=== PATIENT | female | born 1965 | race Caucasian/White ===

== ENCOUNTER 2016-09-24 18:50 | Emergency (ER) | payer OTHER ==
[2016-09-24 19:11] VITALS: BP 122/68; PULSE 96; RESP 18; TEMP 99.2
[2016-09-24] MEDS ORDERED: ACETAMINOPHEN TAB 325 MG TAB PO STA (19:50)
--- NOTE | 2016-09-24 20:23 | XR ---
EXAMINATION TYPE: XR ankle complete RT DATE OF EXAM: 09/24/2016 COMPARISON: NONE HISTORY: Pain TECHNIQUE: 3 views FINDINGS: There is soft tissue swelling over the lateral malleolus. Ankle mortise is anatomic. I see no fracture. IMPRESSION: Soft tissue swelling. No fracture.
--- NOTE | 2016-09-24 20:29 | ED ---
Lower Extremity Injury HPI - General Chief Complaint: Extremity Injury, Lower Stated Complaint: rt ankle injury Time Seen by Provider: 09/24/16 19:43 Source: patient Mode of arrival: ambulatory Limitations: no limitations - History of Present Illness Initial Comments: Patient is a 50-year-old female presenting to the emergency department with chief complaint of right ankle pain. She states she was walking on grass when she stepped into a hole and twisted her ankle. Onset of injury approximately one hour prior to arrival. Patient states she's had a previous sprained ankle to her right foot. Patient was able to ambulate at scene of injury. Patient currently rates pain 7 out of 10, described as sharp, exacerbated with movement, relieved with rest. Patient denies recent fevers, chills, nausea, vomiting, shortness of breath, chest pain, abdominal pain, numbness or tingling. - Related Data Previous Rx's Medication Instructions Recorded Acetaminophen-Codeine 300-30mg 1 tab PO Q6H PRN #12 tablet 09/24/16 [Tylenol #3] Allergies Allergy/AdvReac Type Severity Reaction Status Date / Time aspirin Allergy Dyspnea Verified 09/24/16 19:10 Review of Systems ROS Statement: Those systems with pertinent positive or pertinent negative responses have been documented in the HPI. ROS Other: All systems not noted in ROS Statement are negative. Past Medical History Past Medical History: COPD History of Any Multi-Drug Resistant Organisms: None Reported Past Surgical History: Appendectomy Past Psychological History: Bipolar Smoking Status: Never smoker Past Alcohol Use History: None Reported Past Drug Use History: None Reported General Exam Limitations: no limitations General appearance: alert, anxious Head exam: Present: atraumatic, normocephalic, normal inspection Eye exam: Present: normal appearance Neck exam: Present: normal inspection Respiratory exam: Present: normal lung sounds bilaterally. Absent: respiratory distress, wheezes, rales, rhonchi Cardiovascular Exam: Present: regular rate, normal rhythm, normal heart sounds. Absent: systolic murmur GI/Abdominal exam: Present: soft, normal bowel sounds. Absent: distended Right Knee exam: Present: normal inspection, full ROM. Absent: tenderness, swelling Lower Leg exam: Present: normal inspection, full ROM. Absent: tenderness, swelling Ankle exam: Present: tenderness (Tenderness and swelling to right lateral malleolus), swelling. Absent: full ROM (Secondary to pain), ecchymosis, deformity Foot/Toe exam: Present: normal inspection, full ROM. Absent: tenderness, swelling Course Vital Signs 09/24/16 19:06 Temperature 99.2 F Pulse Rate 96 Respiratory 18 Rate Blood Pressure 122/68 O2 Sat by Pulse 99 Oximetry Medical Decision Making - Medical Decision Making Right ankle sprain. Jenaro wrap applied. Patient instructed to continue compression, elevation, pain medication, and ice. Patient instructed to follow- up with primary care physician as directed. Patient instructed to follow-up with orthopedic service if pain persist in 7-10 days. Patient agrees with treatment plan. Return parameters and discharge instructions reviewed. - Radiology Data Radiology results: report reviewed Right ankle x-ray: Soft tissue swelling over lateral malleolus. Ankle mortise is anatomic. No fracture. Disposition Clinical Impression: Right ankle sprain Disposition: HOME SELF-CARE Condition: Good Instructions: Ankle Sprain (ED) Additional Instructions: Avoid activity that causes pain Ice 20 minutes 4 times a day usually for 2-3 days Jenaro wrap to provide support and limit swelling Keep elevated as much as possible 24-48 hours. Continue naproxen and Tylenol for pain. Return to the emergency department with symptoms of increased swelling, pain, numbness, tingling, or foot feeling cold to touch. Follow-up with primary service as directed. Follow-up with orthopedic service if pain persist in 7-10 days. Prescriptions: Acetaminophen-Codeine 300-30mg [Tylenol #3] 1 tab PO Q6H PRN #12 tablet PRN Reason: Pain Referrals: Stan Johnson MD [Primary Care Provider] - 1-2 days Karri Gallegos MD [STAFF PHYSICIAN] - 1-2 days Time of Disposition: 20:28
== END 2016-09-24 20:47 | disposition home or self-care (01) ==
LOC: EC 18:50
DX: S93.401A Sprain of unspecified ligament of right ankle, initial encounter (principal); Z88.6 Allergy status to analgesic agent; X50.1XXA Overexertion from prolonged static or awkward postures, initial encounter
CPT/HCPCS: 99283

== ENCOUNTER 2018-04-19 12:04 | Inpatient (IN) | payer OTHER ==
--- NOTE | 2018-04-19 12:17 | ED ---
General Adult HPI - General Chief complaint: Shortness of Breath Stated complaint: Dyspnea Time Seen by Provider: 04/19/18 12:06 Source: patient, RN notes reviewed, old records reviewed (From [facility] ) Mode of arrival: EMS Limitations: no limitations - History of Present Illness Initial comments: Patient is a pleasant 52-year-old female presenting to the emergency Department as a transfer from [facility]. Patient has had cough over the past 10 days. Patient has starting to have some shortness of breath over the past couple of days. Dyspnea is near resolved now with nebulizer treatments while at the hospital there. Patient states she has been having some chest discomfort in the upper chest and left lateral chest only with cough. Patient attributed her chest discomfort or cough. Patient states she did have a fever once a couple of days ago. While there patient was found to have a pulse ox of 94%, troponin 0.13, d-dimer elevated. Patient did have pulmonary embolism without sign of cardiac strain. There is also concern for left-sided pneumonia. They did start Rocephin and Levaquin and heparin. Patient states symptoms are all mild at this time. Patient does have a history of non-IV heroin use. Last heroin use was January 06. Patient is a smoker. - Related Data Home Medications Medication Instructions Recorded Confirmed ARIPiprazole [Abilify] 30 mg PO HS 04/19/18 04/19/18 Gabapentin 600 mg PO QID 04/19/18 04/19/18 QUEtiapine FUMARATE [SEROquel] 200 mg PO HS 04/19/18 04/19/18 traZODone HCL 300 mg PO HS 04/19/18 04/19/18 Allergies Allergy/AdvReac Type Severity Reaction Status Date / Time aspirin Allergy Dyspnea Verified 04/19/18 12:17 Review of Systems ROS Statement: Those systems with pertinent positive or pertinent negative responses have been documented in the HPI. ROS Other: All systems not noted in ROS Statement are negative. Constitutional: Reports: as per HPI, fever Eyes: Denies: eye pain ENT: Denies: ear pain Respiratory: Reports: cough, dyspnea Cardiovascular: Reports: chest pain Endocrine: Denies: fatigue Gastrointestinal: Denies: abdominal pain Genitourinary: Denies: dysuria Musculoskeletal: Denies: back pain Skin: Denies: rash Neurological: Denies: weakness Past Medical History Past Medical History: COPD History of Any Multi-Drug Resistant Organisms: None Reported Past Surgical History: Appendectomy Past Psychological History: Bipolar Smoking Status: Former smoker Past Alcohol Use History: None Reported Past Drug Use History: None Reported General Exam Limitations: no limitations General appearance: alert, in no apparent distress Head exam: Present: atraumatic Eye exam: Present: normal appearance, PERRL ENT exam: Present: normal oropharynx Neck exam: Present: normal inspection Respiratory exam: Present: wheezes (Mild expiratory wheeze) Cardiovascular Exam: Present: regular rate, normal rhythm Expanded Peripheral pulses: 2+: Radial (R), Radial (L), Dorsalis Pedis (R), Dorsalis Pedis (L) GI/Abdominal exam: Present: soft. Absent: distended, tenderness Extremities exam: Present: normal inspection. Absent: pedal edema, calf tenderness Neurological exam: Present: alert Psychiatric exam: Present: normal affect, normal mood Skin exam: Present: normal color Course Vital Signs 04/19/18 04/19/18 12:08 12:22 Temperature 99.3 F Pulse Rate 88 Respiratory 18 19 Rate Blood Pressure 116/65 O2 Sat by Pulse 95 Oximetry - Reevaluation(s) Reevaluation #1: 04/19/18 12:29 I discussed smoking cessation for greater than 3 minutes. The risks of smoking were discussed with the patient including but not limited to wrist of cancer, stroke, coronary artery disease, and COPD. Also discussed with the patient were multiple methods of quitting smoking. Lastly, we discussed the financial cost of smoking. EKG Findings - EKG Comments: EKG Findings:: Normal sinus rhythm 85. IL 138. QRS 88. QT 404. QTC 480. Normal axis. Normal QRS. No acute ST change. Medical Decision Making - Medical Decision Making Case was discussed in detail with Dr. Contreras, covering for Dr. Reveles, who admits for Dr. De La Cruz. Patient is updated. Disposition Clinical Impression: Pulmonary embolism, Pneumonia Disposition: ADMITTED IP TO THIS HOSP Is patient prescribed a controlled substance at d/c from ED?: No Referrals: Deonte De La Cruz MD [Primary Care Provider] - 1-2 days Decision Time: 12:30
[2018-04-19] MEDS ORDERED: PNEUMONIA PROTOCOL UTILIZED 1 EACH MISC PO PRN (12:30)
[2018-04-19] MEDS ORDERED: HEPARIN SODIUM,PORCINE 5,000 UNIT/ML 1 ML VIAL IV PRN (12:30)
[2018-04-19] MEDS ORDERED: IPRATROPIUM-ALBUTEROL 3 ML NEB INHALATION PRN (12:30)
[2018-04-19] MEDS ORDERED: AZITHROMYCIN 500 MG in SODIUM CHLORIDE 0.9% 250 ML IVPB STA (12:30)
[2018-04-19] MEDS ORDERED: NITROGLYCERIN SL TABS 0.4 MG TAB SUBLINGUAL PRN (12:33)
[2018-04-19] MEDS: HEPARIN SOD,PORK IN 0.45% NACL 25,000 UNIT in 0.45% NACL 1 250ML.BAG IV SCH (13:29)
[2018-04-19] MEDS ORDERED: INFLUENZA VACCINE (6 MOS+) 60 MCG/0.5 ML SYRINGE IM ONE (13:48)
--- NOTE | 2018-04-19 16:01 | P.CRDCN ---
History of Present Illness Consult date: 04/19/18 Requesting physician: Mandi Mcdowell Consult reason: chest pain Chief complaint: Chest pain and cough. History of present illness: This is a 52-year-old female with known history of nicotine dependence , patient also has history of EtOH abuse in the past, states that she had a relapse in February and was drinking heavily at that time. She also states that she had overdosed on heroin in January of last year. She presented initially to [facility] [place] with symptoms of chest discomfort, she also states that she's been having significant cough at home. A CAT scan of the chest was performed there which revealed right segmental and subsegmental PE, no evidence of right heart strain on the CAT scan. However this study was suboptimal. Chest x-ray there also showed some evidence of possible infiltrate . Laboratory data at [place] was reviewed, lactic acid came back at 2.1, sodium 137, potassium 3.8, BUN 18 and creatinine 0.8. D-dimer 3.74. Influenza A and B were negative. Troponin came back at 0.131, white blood cell count 12.9 , hemoglobin 13.0, platelet count 498. Drug screen positive for tricyclics. EKG performed at [facility] [place] showed a normal sinus rhythm with S1 Q3 T3 pattern. Patient was transferred to [facility] for further care. Blood pressure 110/80 with heart rate in the 80s to 90s, 93% on room air. No labs have been drawn yet here at [facility]. EKG performed here shows a normal sinus rhythm with S1 Q3 T3 pattern. At the time of our examination, patient denied any chest pain at present unless she coughs she states that she does not have pain. Still mildly short of breath. Past Medical History Past Medical History: COPD, GERD/Reflux, Osteoarthritis (OA), Pneumonia, Rheumatoid Arthritis (RA) Additional Past Medical History / Comment(s): Stomach ulcer years ago, OA/RA in bilateral knees and back-chronic pain, past migraines. History of Any Multi-Drug Resistant Organisms: None Reported Past Surgical History: Appendectomy Additional Past Surgical History / Comment(s): Nephronectomy as an infant, EGD. Past Anesthesia/Blood Transfusion Reactions: No Reported Reaction Additional Past Anesthesia/Blood Transfusion Reaction / Comment(s): Pt states she woke during appendectomy. Smoking Status: Current every day smoker - Past Family History Father Additional Family Medical History / Comment(s): Father of chron's complications. Mother Family Medical History: Cancer Additional Family Medical History / Comment(s): Mother is a lymphoma cancer survivor. Medications and Allergies Home Medications Medication Instructions Recorded Confirmed Type ARIPiprazole [Abilify] 30 mg PO HS 04/19/18 04/19/18 History Gabapentin 600 mg PO QID 04/19/18 04/19/18 History QUEtiapine FUMARATE [SEROquel] 200 mg PO HS 04/19/18 04/19/18 History traZODone HCL 300 mg PO HS 04/19/18 04/19/18 History Allergies Allergy/AdvReac Type Severity Reaction Status Date / Time aspirin Allergy Dyspnea Verified 04/19/18 12:17 Physical Exam Vitals: Vital Signs Temp Pulse Resp BP Pulse Ox 04/19/18 13:30 91 8 L 109/85 93 L 04/19/18 13:00 98 15 121/74 04/19/18 12:30 98 22 116/65 96 04/19/18 12:22 19 04/19/18 12:14 97 14 93 L 04/19/18 12:08 99.3 F 88 18 116/65 95 Intake and Output 04/19/18 04/19/18 04/19/18 06:59 14:59 22:59 Other: Weight 101.877 kg PHYSICAL EXAMINATION: GENERAL: 82-year-old female in no acute distress at the time of my examination HEENT: Head is atraumatic, normocephalic. Pupils equal, round. Sclera anicteric. Conjunctiva are clear. Mucous membranes of the mouth are moist. Neck is supple. There is no elevated jugular venous pressure. No carotid bruit is heard. HEART EXAMINATION: Heart S1, S2 normal. No murmur or gallop heard. CHEST EXAMINATION: Lungs reveal decreased air exchange throughout with scattered coarse rhonchi and wheezing noted. ABDOMEN: Soft, nontender. Bowel sounds are heard. No organomegaly noted. EXTREMITIES:[ 2+ peripheral pulses with no evidence of peripheral edema and positive Homans sign on the right. NEUROLOGIC patient is awake, alert and oriented 3 . Results Current Medications Generic Name Dose Route Start Last Admin Trade Name Freq PRN Reason Stop Dose Admin Albuterol/Ipratropium 3 ml 04/19/18 16:00 Duoneb 0.5 Mg-3 Mg/3 Ml Soln INHALATION RT-QID JAK Albuterol/Ipratropium 3 ml 04/19/18 12:30 Duoneb 0.5 Mg-3 Mg/3 Ml Soln INHALATION RT-Q4H PRN shortness of breath Azithromycin 500 mg 04/20/18 12:00 Zithromax PO Q24H JAK Heparin Sodium (Porcine) 0 unit 04/19/18 12:30 04/19/18 13:37 Heparin IV 5,000 unit PER PROTOCOL PRN Administration Low PTT Protocol Heparin Sodium/Sodium Chloride 250 mls @ 18.33 mls/hr 04/19/18 12:30 13:29 25,000 unit/ Sodium Chloride IV 18 units/kg/hr .[id number] JAK 18.33 mls/hr Administration Protocol 18 UNITS/KG/HR Ceftriaxone Sodium 1 gm/ 50 mls @ 100 mls/hr 04/19/18 13:00 Sodium Chloride IVPB 04/23/18 13:01 Q24H [facility] Sodium Chloride 1,000 mls @ 100 mls/hr 04/19/18 12:30 Saline 0.9% IV .Q10H [facility] Miscellaneous Information 1 each 04/19/18 12:30 Pneumonia Protocol Utilized PO ONCE PRN Per Protocol Nitroglycerin 0.4 mg 04/19/18 12:33 Nitrostat SUBLINGUAL Q5M PRN Chest Pain Intake and Output 04/19/18 04/19/18 04/19/18 06:59 14:59 22:59 Other: Weight 101.877 kg Patient Weight 04/20/18 06:59 Weight 101.877 kg EKG Interpretations (text) EKG shows a normal sinus rhythm with S1 Q3 T3 pattern. Assessment and Plan Plan: Assessment and plan #1 symptoms of chest discomfort with associated shortness of breath. Elevated d -dimer, CT of the chest positive for pulmonary embolism. #2 abnormal troponin, could be secondary to pulmonary embolism, could also be elevated secondary to a possible pneumonia. #3 nicotine dependence #4 history of EtOH abuse #5 history of heroin abuse Plan We will obtain an echo cardiac gram with Doppler study. We will also get a venous duplex study of the lower extremities to rule out DVT. Continue anticoagulation at this time with heparin. Further recommendations to follow. DNP note has been reviewed, I agree with a documented findings and plan of care. Patient was seen and examined.
[2018-04-19] MEDS: IPRATROPIUM-ALBUTEROL 3 ML NEB INHALATION SCH ×2 (16:19→19:25)
--- NOTE | 2018-04-19 16:42 | US ---
EXAMINATION TYPE: US venous doppler duplex LE DATE OF EXAM: 04/19/2018 4:26 PM COMPARISON: NONE CLINICAL HISTORY: r/o dvt. PE, right leg pain SIDE PERFORMED: Bilateral TECHNIQUE: The lower extremity deep venous system is examined utilizing real time linear array sonog justus with graded compression, doppler sonography and color-flow sonography. VESSELS IMAGED: External Iliac Vein (EIV) Common Femoral Vein Deep Femoral Vein Greater Saphenous Vein * Femoral Vein Popliteal Vein Small Saphenous Vein * Proximal Calf Veins (* superficial vessels) There is normal flow, compressibility, vascular waveforms. Right Leg: No evidence of DVT Left Leg: No evidence of DVT IMPRESSION: No evident deep venous arthrosis at or above the knees. Follow-up as indicated.
[2018-04-19 17:42] LABS: Creatine Kinase MB 3.2 ng/mL (0.0-2.4)
[2018-04-19 17:49] LABS: Troponin I 0.051 ng/mL (0.000-0.034)
[2018-04-19] MEDS ORDERED: ACETAMINOPHEN TAB 325 MG TAB PO PRN (20:57)
[2018-04-19] MEDS: SODIUM CHLORIDE 0.9% 1,000 ML IV SCH ×2 (22:00→22:56)
[2018-04-19] MEDS ORDERED: NON-FORMULARY DRUG (Gabapentin [Gabapentin] 600 MG) PO SCH (22:00)
[2018-04-19] MEDS: NICOTINE 14MG/24HR PATCH TRANSDERM SCH (22:01)
[2018-04-19] MEDS: GABAPENTIN 400 MG CAP PO SCH (22:01)
[2018-04-19] MEDS: ARIPiprazole 10 MG TAB PO SCH (22:02)
[2018-04-19] MEDS: QUEtiapine 200 MG TAB PO SCH (22:02)
[2018-04-19] MEDS: traZODone HCL 100 MG TAB PO SCH (22:02)
--- NOTE | 2018-04-19 23:33 | P.HPIM ---
History of Present Illness H&P Date: 04/19/18 Chief Complaint: Shortness of breath Patient is a 52-year-old female with known history of COPD, nicotine addiction, GERD and osteoarthritis and history of multiple pneumonias patient is to ER as a transfer from [facility] in the hospital. Patient presented to ER with complaints of shortness of breath for the past 10 days. Patient was also having cough and chest pain with deep breathing. Chest pain is mainly bilateral lower rib cage sharp pain worsens with cough. Patient has been having exertional short of breath with walking and due to that she states that she had a someone for dog walking as well. Patient does have a history of COPD and did use now blazing treatments at home without much relief. Patient was found to have elevated d- dimer and underwent CT angiogram of the chest which showed pulmonary embolism. Patient also found have elevated troponin level 0.13. Pulse ox 93% on admission. There was also counseled for half left lower lobe pneumonia. Patient was started on Rocephin and Levaquin. Patient otherwise denied any previous history of blood clots. Patient does have leg swelling right greater than left about a week ago. Patient says that she was treated with for pneumonia in December 2017 and had history of pneumonia 4 during last year as per patient. Patient is currently everyday smoker. Does have history of hairline IVDU. D-dimer 3.74 Influenza A and B- Lactic acid 2.1 Hemoglobin 13.0 WBC 12.9 UDS is positive for tricyclic antidepressants EKG showed normal sinus rhythm. Carotid duplex showed no evidence of DVT in the bilateral lower extremities. Review of Systems Constitutional: Patient denies any fever or chills . No generalized weakness or weight loss. Abdomen: Patient denied nausea vomiting and diarrhea and abdominal pain. Cardiovascular: Patient denies any chest pain or short of breath no palpitations. Respiratory: Cough and shortness of breath and chest pain with cough. Neurologic: Patient denied any numbness or tingling headache. Musculoskeletal: Patient denies any complaints of joint swelling or deformity. Skin: Negative Psychiatric: Negative Endocrine: No heat or cold intolerance. No recent weight gain. Genitourinary: No dysuria or hematuria. All other 14 point ROS negative except the above Past Medical History Past Medical History: COPD, GERD/Reflux, Osteoarthritis (OA), Pneumonia, Rheumatoid Arthritis (RA) Additional Past Medical History / Comment(s): Stomach ulcer years ago, OA/RA in bilateral knees and back-chronic pain, past migraines. History of Any Multi-Drug Resistant Organisms: None Reported Past Surgical History: Appendectomy Additional Past Surgical History / Comment(s): Nephronectomy as an infant, EGD. Past Anesthesia/Blood Transfusion Reactions: No Reported Reaction Additional Past Anesthesia/Blood Transfusion Reaction / Comment(s): Pt states she woke during appendectomy. Smoking Status: Current every day smoker - Past Family History Father Additional Family Medical History / Comment(s): Father of chron's complications. Mother Family Medical History: Cancer Additional Family Medical History / Comment(s): Mother is a lymphoma cancer survivor. Medications and Allergies Home Medications Medication Instructions Recorded Confirmed Type ARIPiprazole [Abilify] 30 mg PO HS 04/19/18 04/19/18 History Gabapentin 1,200 mg PO BID 04/19/18 04/19/18 History QUEtiapine FUMARATE [SEROquel] 200 mg PO HS 04/19/18 04/19/18 History traZODone HCL 300 mg PO HS 04/19/18 04/19/18 History Allergies Allergy/AdvReac Type Severity Reaction Status Date / Time aspirin Allergy Dyspnea Verified 04/19/18 12:17 Physical Exam Vitals: Vital Signs Temp Pulse Resp BP Pulse Ox 04/19/18 15:30 102/58 04/19/18 15:00 85 14 126/61 94 L 04/19/18 14:30 97 25 H 122/47 96 04/19/18 14:00 101 H 15 117/71 95 04/19/18 13:30 91 8 L 109/85 93 L 04/19/18 13:00 98 15 121/74 04/19/18 12:30 98 22 116/65 96 04/19/18 12:22 19 04/19/18 12:14 97 14 93 L 04/19/18 12:08 99.3 F 88 18 116/65 95 Intake and Output 04/19/18 04/19/18 04/19/18 06:59 14:59 22:59 Other: Weight 101.877 kg PHYSICAL EXAMINATION: Patient is lying in the bed comfortably, no acute distress, awake alert and oriented.. HEENT: Normocephalic. Neck is supple. Pupils reactive. Nostrils clear. Oral cavity is moist. Ears reveal no drainage. Neck reveals no JVD, carotid bruits, or thyromegaly. CHEST EXAMINATION: Trachea is central. Symmetrical expansion. Minimal expiratory wheeze and rhonchi. Lung early clear to auscultation and percussion. CARDIAC: Normal S1, S2 with no gallops. No murmurs ABDOMEN: Soft. Bowel sounds normal. No organomegaly. No abdominal bruits. Extremities: reveal no edema. No clubbing or cyanosis Neurologically awake, alert, oriented x3 with well-coordinated movements. No focal deficits noted Skin: No rash or skin lesions. Psychiatric: Coperative. Nonsuicidal Musculoskeletal: No joint swelling or deformity. Normal range of motion. Thrombosis Risk Factor Assmnt - DVT/VTE Prophylaxis DVT/VTE Prophylaxis: Pharmacologic Prophylaxis ordered - Choose All That Apply Any of the Below Risk Factors Present?: Yes Each Factor Represents 1 point: Abnormal pulmonary function (COPD), Age 41-60 years, Obesity (BMI >25) Other Risk Factors: Yes Each Risk Factor Represents 3 Points: History of DVT/PE Other congenital or acquired thrombophilia - If yes, enter type in comment: No Thrombosis Risk Factor Assessment Total Risk Factor Score: 6 Thrombosis Risk Factor Assessment Level: High Risk Assessment and Plan Assessment: Shortness of breath and pleuritic chest pain with elevated d-dimer secondary to pulmonary embolism Left lower lobe pneumonia Elevated troponins secondary to pulmonary embolism and also possibly from pneumonia. COPD Nicotine addiction Osteoarthritis History of rheumatoid arthritis History of migraine headaches History of alcohol abuse and Heroin IVDU GERD Plan: Patient will be continued on heparin drip. Current with antibiotics in the form of ceftriaxone and azithromycin. Continue with the breathing treatments and follow closely. Pulmonary and cardiology was consulted. Further recommendations based on the clinical course. Smoking cessation has been counseled extensively. Time with Patient: Greater than 30
[2018-04-19 23:41] LABS: Creatine Kinase MB 2.2 ng/mL (0.0-2.4); Troponin I 0.024 ng/mL (0.000-0.034)
[2018-04-20] MEDS: HEPARIN SOD,PORK IN 0.45% NACL 25,000 UNIT in 0.45% NACL 1 250ML.BAG IV SCH ×2 (03:19→19:00)
[2018-04-20] MEDS: CALCIUM CARBONATE 500 MG CHEWABLE PO PRN ×2 (03:27→21:20)
[2018-04-20 06:32] LABS: Basophils % (A) 0 %; Eosinophils % (A) 0 %; HCT 33.6 % (34.0-46.0); HGB 10.8 gm/dL (11.4-16.0); Hypochromasia Slight; Lymphocytes # (A) 1.6 k/uL (1.0-4.8); Lymphocytes % (A) 11 %; MCH 29.3 pg (25.0-35.0); MCHC 32.2 g/dL (31.0-37.0); MCV 90.9 fL (80.0-100.0); Mean Platelet Volume 6.3; Monocytes # (A) 0.7 k/uL (0-1.0); Monocytes % (A) 5 %; Neutrophils # (A) 12.4 k/uL (1.3-7.7); Neutrophils % (A) 83 %; Platelet Count 544 k/uL (150-450); RDW 13.7 % (11.5-15.5)
[2018-04-20 07:05] LABS: Anion Gap 4 mmol/L; Blood Urea Nitrogen 16 mg/dL (7-17); Calcium 8.9 mg/dL (8.4-10.2); Carbon Dioxide 29 mmol/L (22-30); Chloride 106 mmol/L (98-107); Cholesterol 157 mg/dL (<200); Glucose 159 mg/dL (74-99); HDL Cholesterol 31 mg/dL (40-60); LDL Cholesterol,Calculated 105 mg/dL (0-99); Potassium 4.5 mmol/L (3.5-5.1); Sodium 139 mmol/L (137-145); Triglycerides 104 mg/dL (<150)
--- NOTE | 2018-04-20 08:07 | ECHOF ---
Referral Reason:Pulmonary embolism, elevated troponin MEASUREMENTS -------- HEIGHT: 170.2 cm WEIGHT: 101.6 kg BP: RVIDd: 2.1 cm (< 3.3) IVSd: 1.2 cm (0.6 - 1.1) LVIDd: 4.1 cm (3.9 - 5.3) LVPWd: 1.3 cm (0.6 - 1.1) IVSs: 1.8 cm LVIDs: 2.1 cm LVPWs: 1.8 cm LAESV Index (A-L): 19.21 ml/m Ao Diam: 3.0 cm (2.0 - 3.7) AV Cusp: 2.3 cm (1.5 - 2.6) LA Diam: 2.6 cm (2.7 - 3.8) MV EXCURSION: 18.048 mm (> 18.000) MV EF SLOPE: 58 mm/s (70 - 150) EPSS: 1.2 cm MV E Pantera: 0.63 m/s MV DecT: 177 ms MV A Pantera: 0.93 m/s MV E/A Ratio: 0.67 RAP: 15.00 mmHg RVSP: 51.26 mmHg FINDINGS -------- Sinus rhythm. This was a technically good study. The left ventricular size is normal. Left ventricular wall thickness is normal. Overall left vent ricular systolic function is normal with, an EF between 55 - 60 %. The right ventricle is normal in size. Normal LA size by volume 22+/-6 ml/m2. The right atrium is normal in size. The aortic valve is trileaflet, and appears structurally normal. No aortic stenosis or regurgitation. There is trace mitral regurgitation. Mild tricuspid regurgitation present. There is mild to moderate pulmonary hypertension. The right ventricular systolic pressure, as measured by Doppler, is 51.26mmHg. Pulmonic valve appears structurally normal. The aortic root size is normal. The inferior vena cava is mildly dilated. There is a small, generalized pericardial effusion present. CONCLUSIONS -------- 1. Sinus rhythm. 2. This was a technically good study. 3. The left ventricular size is normal. 4. Left ventricular wall thickness is normal. 5. Overall left ventricular systolic function is normal with, an EF between 55 - 60 %. 6. The right ventricle is normal in size. 7. Normal LA size by volume 22+/-6 ml/m2. 8. The right atrium is normal in size. 9. The aortic valve is trileaflet, and appears structurally normal. No aortic stenosis or regurgitati on. 10. There is trace mitral regurgitation. 11. Mild tricuspid regurgitation present. 12. There is mild to moderate pulmonary hypertension. 13. The right ventricular systolic pressure, as measured by Doppler, is 51.26mmHg. 14. Pulmonic valve appears structurally normal. 15. The aortic root size is normal. 16. The inferior vena cava is mildly dilated. 17. There is a small, generalized pericardial effusion present. [employer] OPERATOR: Ladi Ann RDCS
[2018-04-20] MEDS: GABAPENTIN 400 MG CAP PO SCH ×2 (08:56→21:14)
[2018-04-20] MEDS: IPRATROPIUM-ALBUTEROL 3 ML NEB INHALATION SCH ×6 (09:14→21:29)
[2018-04-20] MEDS: AZITHROMYCIN 500 MG TAB PO SCH (11:32)
[2018-04-20] MEDS: SODIUM CHLORIDE 0.9% 1,000 ML IV SCH ×2 (12:46→21:15)
[2018-04-20] MEDS: NICOTINE 14MG/24HR PATCH TRANSDERM SCH (12:46)
[2018-04-20] MEDS ORDERED: IPRATROPIUM-ALBUTEROL 3 ML NEB INHALATION PRN (13:18)
--- NOTE | 2018-04-20 13:50 | XR ---
EXAMINATION TYPE: XR chest 1V portable DATE OF EXAM: 04/20/2018 COMPARISON: Prior chest x-ray from outside institution 04/19/2017 HISTORY: Pneumonia TECHNIQUE: Single frontal view of the chest is obtained. FINDINGS: There is improved aeration at the left lung base. No pneumothorax or pleural effusion. Hea rt size is stable. There are cardiac leads. Pulmonary vascularity and arleen are within normal limits. IMPRESSION: Improved aeration. Consider follow-up PA and lateral chest x-ray.
--- NOTE | 2018-04-20 14:03 | P.PN ---
Subjective Progress Note Date: 04/20/18 This is a 52-year-old female with known history of nicotine dependence , patient also has history of EtOH abuse in the past, states that she had a relapse in February and was drinking heavily at that time. She also states that she had overdosed on heroin in January of last year. She presented initially to [facility] with symptoms of chest discomfort, she also states that she's been having significant cough at home. A CAT scan of the chest was performed there which revealed right segmental and subsegmental PE, no evidence of right heart strain on the CAT scan. However this study was suboptimal. Chest x-ray there also showed some evidence of possible infiltrate . Laboratory data at [place] was reviewed, lactic acid came back at 2.1, sodium 137, potassium 3.8, BUN 18 and creatinine 0.8. D-dimer 3.74. Influenza A and B were negative. Troponin came back at 0.131, white blood cell count 12.9 , hemoglobin 13.0, platelet count 498. Drug screen positive for tricyclics. EKG performed at [facility] showed a normal sinus rhythm with S1 Q3 T3 pattern. Patient was transferred to [facility] for further care. Blood pressure 110/80 with heart rate in the 80s to 90s, 93% on room air. No labs have been drawn yet here at [facility]. EKG performed here shows a normal sinus rhythm with S1 Q3 T3 pattern. At the time of our examination, patient denied any chest pain at present unless she coughs she states that she does not have pain. Still mildly short of breath. 04/20/2018 Patient was seen and examined this morning, her states that her breathing is improved today overall. Echocardiogram with Doppler study was performed which revealed a normal left ventricular systolic function. Blood pressure today 118/ 56 with a heart rate in the 60s, 93% on room air. White blood cell count 15, hemoglobin 10.8, platelet count 544. Sodium 139, potassium 4.5, BUN 16 and creatinine 0.5. Objective - Vital Signs Vital signs: Vital Signs Temp 98.5 F 04/19/18 20:00 Pulse 82 04/20/18 12:10 Resp 16 04/20/18 12:00 BP 118/56 04/20/18 12:00 Pulse Ox 93 L 04/20/18 12:00 Intake & Output 04/19/18 04/20/18 04/20/18 18:59 06:59 18:59 Intake Total 839 487 Output Total 700 Balance 839 -213 Weight 101.877 kg 111.1 kg Intake: Amount of Fluid Infused ( 350 ml) Intake, IV Titration 489 250 Amount Azithromycin 500 mg In 250 Sodium Chloride 0.9% 250 ml @ 250 mls/hr IVPB ONCE STA Rx#:[id number] Heparin Sod,Pork in 0.45% 39 250 NaCl 25,000 unit In 0.45 % NaCl 1 250ml.bag @ 18 UNITS/KG/HR 18.33 mls/hr IV .[id number] JAK Rx#: [id number] Sodium Chloride 0.9% 1, 200 000 ml @ 100 mls/hr IV . Q10H JAK Rx#:[id number] Oral 237 Output: Urine 700 Other: Voiding Method Bedpan # Voids 0 # Bowel Movements 0 - Exam PHYSICAL EXAMINATION: GENERAL: 82-year-old female in no acute distress at the time of my examination HEENT: Head is atraumatic, normocephalic. Pupils equal, round. Sclera anicteric. Conjunctiva are clear. Mucous membranes of the mouth are moist. Neck is supple. There is no elevated jugular venous pressure. No carotid bruit is heard. HEART EXAMINATION: Heart S1, S2 normal. No murmur or gallop heard. CHEST EXAMINATION: Lungs reveal decreased air exchange throughout with scattered coarse rhonchi and wheezing noted. ABDOMEN: Soft, nontender. Bowel sounds are heard. No organomegaly noted. EXTREMITIES:[ 2+ peripheral pulses with no evidence of peripheral edema and positive Homans sign on the right. NEUROLOGIC patient is awake, alert and oriented 3 . - Labs CBC & Chem 7: 04/20/18 06:18 04/20/18 06:18 Labs: Abnormal Lab Results - Last 24 Hours (Table) 04/19/18 04/19/18 04/19/18 Range/Units 16:30 19:44 22:37 WBC (3.8-10.6) k/uL RBC (3.80-5.40) m/uL Hgb (11.4-16.0) gm/dL Hct (34.0-46.0) % Plt Count (150-450) k/uL Neutrophils # (1.3-7.7) k/uL APTT 63.7 H (22.0-30.0) sec Glucose (74-99) mg/dL Total Creatine Kinase 859 H 658 H (30-135) U/L CK-MB (CK-2) 3.2 H (0.0-2.4) ng/mL Troponin I 0.051 H* (0.000-0.034) ng/mL LDL Cholesterol, Calc (0-99) mg/dL HDL Cholesterol (40-60) mg/dL 04/20/18 04/20/18 04/20/18 Range/Units 06:18 06:18 06:18 WBC 15.0 H (3.8-10.6) k/uL RBC 3.70 L (3.80-5.40) m/uL Hgb 10.8 L (11.4-16.0) gm/dL Hct 33.6 L (34.0-46.0) % Plt Count 544 H (150-450) k/uL Neutrophils # 12.4 H (1.3-7.7) k/uL APTT 65.1 H (22.0-30.0) sec Glucose 159 H (74-99) mg/dL Total Creatine Kinase (30-135) U/L CK-MB (CK-2) (0.0-2.4) ng/mL Troponin I (0.000-0.034) ng/mL LDL Cholesterol, Calc 105 H (0-99) mg/dL HDL Cholesterol 31 L (40-60) mg/dL Assessment and Plan Plan: Assessment and plan #1 symptoms of chest discomfort with associated shortness of breath. Elevated d -dimer, CT of the chest positive for pulmonary embolism. #2 abnormal troponin, could be secondary to pulmonary embolism, could also be elevated secondary to a possible pneumonia. #3 nicotine dependence #4 history of EtOH abuse #5 history of heroin abuse Plan Echocardiogram with Doppler study showed a normal left ventricular systolic function. Pulmonary is going to review the CAT scan, if the patient in fact does have evidence of pulmonary embolism, she will need to be started on oral anticoagulation. In the meantime we will check to see if she has coverage for one of the newer anticoagulants. DNP note has been reviewed, I agree with a documented findings and plan of care. Patient was seen and examined.
[2018-04-20 14:48] VITALS: BMI 38.3
--- NOTE | 2018-04-20 15:54 | P.CNPUL ---
History of Present Illness Consult date: 04/20/18 Requesting physician: Letha Contreras Reason for consult: dyspnea, cough, COPD Chief complaint: Shortness of breath, coughing, chest congestion History of present illness: This is a 52-year-old overweight female patient of Dr. De La Cruz, past medical history of COPD, current smoker, bipolar disorder, who was transferred from [facility] on 04/19/2018 for evaluation of worsening shortness of breath, cough, chest congestion, upper and lower lateral left-sided chest wall discomfort, fever and chills. Patient had been sick for nearly 10 days before coming into the emergency department, was mostly on bedrest. Denied any hemoptysis. She did have a sick exposure, her mother is with cold symptoms. She does have a previous episode of pneumonia in December 2017. Does have extensive smoking history currently down to half a pack a day, but prior to that smoked a pack a day for 38 years. According to the chart she has history of non-IV heroin use, last use was in January 2018. Lab work from [facility] showed white blood cell count of 12.9, hemoglobin of 13.0, platelets of 498, neutrophil count of 10.5, troponin elevation of 0.13, influenza screen was negative, d-dimer was elevated at 3.74, CPK was elevated at 886, serum sodium was 137, potassium is 3.8, chloride is 98, CO2 is 27, BUN was 18, creatinine 0.8, AST was 53, ALT was 31, alkaline phosphatase was 68, total bili was 0.6, lactic acid was 2.1. EKG showed sinus tachycardia with no ST segment depression or elevation, with a rate of 120 BPM. Pulse ox is 94% on room air, CT angiogram of the chest was obtained and it showed a right segmental and subsegmental pulmonary embolism with no evidence of right heart strain as read by the radiologist from [facility]. Was a suboptimal study, as there was not enough dye seen in the pulmonary vasculature. There was also evidence of left upper lung and left lingular pneumonia. Patient was started on Zithromax, Rocephin, nebulized bronchodilators, IV heparin, and this consult was initiated. Review of Systems All systems: negative Constitutional: Denies chills, Denies fever Eyes: denies blurred vision, denies pain Ears, nose, mouth and throat: Denies headache, Denies sore throat Cardiovascular: Denies chest pain, Denies shortness of breath Respiratory: Reports congestion, Reports cough with sputum, Reports dyspnea, Reports pain on inspiration, Reports respiratory infections, Denies cough Gastrointestinal: Denies abdominal pain, Denies diarrhea, Denies nausea, Denies vomiting Genitourinary: Denies dysuria, Denies hematuria Musculoskeletal: Denies myalgias Integumentary: Denies pruritus, Denies rash Neurological: Denies numbness, Denies weakness Psychiatric: Denies anxiety, Denies depression Endocrine: Denies fatigue, Denies weight change Past Medical History Past Medical History: COPD, GERD/Reflux, Osteoarthritis (OA), Pneumonia, Rheumatoid Arthritis (RA) Additional Past Medical History / Comment(s): Stomach ulcer years ago, OA/RA in bilateral knees and back-chronic pain, past migraines. History of Any Multi-Drug Resistant Organisms: None Reported Past Surgical History: Appendectomy Additional Past Surgical History / Comment(s): Nephronectomy as an , EGD. Past Anesthesia/Blood Transfusion Reactions: No Reported Reaction Additional Past Anesthesia/Blood Transfusion Reaction / Comment(s): Pt states she woke during appendectomy. Smoking Status: Current every day smoker - Past Family History Father Additional Family Medical History / Comment(s): Father of chron's complications. Mother Family Medical History: Cancer Additional Family Medical History / Comment(s): Mother is a lymphoma cancer survivor. Medications and Allergies Home Medications Medication Instructions Recorded Confirmed Type ARIPiprazole [Abilify] 30 mg PO HS 04/19/18 04/19/18 History Gabapentin 1,200 mg PO BID 04/19/18 04/19/18 History QUEtiapine FUMARATE [SEROquel] 200 mg PO HS 04/19/18 04/19/18 History traZODone HCL 300 mg PO HS 04/19/18 04/19/18 History Allergies Allergy/AdvReac Type Severity Reaction Status Date / Time aspirin Allergy Dyspnea Verified 04/19/18 12:17 Physical Exam Vitals: Vital Signs Temp Pulse Pulse Resp BP BP Pulse Ox 04/20/18 12:10 82 04/20/18 12:00 62 16 118/56 93 L 04/20/18 11:59 80 04/20/18 09:25 78 04/20/18 09:15 78 04/20/18 08:00 57 L 14 110/54 97 04/20/18 05:16 61 18 112/57 95 04/20/18 03:33 61 18 112/54 95 04/20/18 03:13 18 04/20/18 00:45 62 18 103/55 91 L 04/19/18 20:00 98.5 F 86 20 124/59 92 L 04/19/18 19:34 74 16 04/19/18 19:26 76 16 93 L 04/19/18 17:00 20 04/19/18 16:50 99.3 F 85 14 102/58 94 L 04/19/18 15:30 102/58 04/19/18 15:00 85 14 126/61 94 L 04/19/18 14:30 97 25 H 122/47 96 04/19/18 14:00 101 H 15 117/71 95 04/19/18 13:30 91 8 L 109/85 93 L Intake and Output 04/19/18 04/20/18 04/20/18 22:59 06:59 14:59 Intake Total 587 250 Output Total 400 300 Balance 187 -50 Intake: Amount of Fluid Infused ( 350 ml) Intake, IV Titration 250 Amount Heparin Sod,Pork in 0.45% 250 NaCl 25,000 unit In 0.45 % NaCl 1 250ml.bag @ 18 UNITS/KG/HR 18.33 mls/hr IV .[id number] [facility] Rx#: [id number] Oral 237 Output: Urine 400 300 Other: Voiding Method Bedpan # Voids 0 # Bowel Movements 0 Weight 111.1 kg GENERAL EXAM: Alert, active, comfortable in no apparent distress. HEAD: Normocephalic/atraumatic. EYES: Normal reaction of pupils, equal size. Conjunctiva pink, sclera white. NOSE: Clear with pink turbinates. THROAT: No erythema or exudates. NECK: No masses, no JVD, no thyroid enlargement, no adenopathy. CHEST: No chest wall deformity. Symmetrical expansion. LUNGS: Equal air entry with diffuse wheezes, and rhonchi CVS: Regular rate and rhythm, normal S1 and S2, no gallops, no murmurs, no rubs ABDOMEN: Soft, nontender. No hepatosplenomegaly, normal bowel sounds, no guarding or rigidity. EXTREMITIES: No clubbing, no edema, no cyanosis, 2+ pulses and upper and lower extremities. MUSCULOSKELETAL: Muscle strength and tone normal. SPINE: No scoliosis or deformity SKIN: No rashes CENTRAL NERVOUS SYSTEM: Alert and oriented -3. No focal deficits, tone is normal in all 4 extremities. PSYCHIATRIC: Alert and oriented -3. Appropriate affect. Intact judgment and insight. Results - Laboratory Findings CBC and BMP: 04/20/18 06:18 04/20/18 06:18 Abnormal lab findings: Abnormal Labs 04/19/18 04/19/18 04/19/18 16:30 19:44 22:37 WBC RBC Hgb Hct Plt Count Neutrophils # APTT 63.7 H Glucose Total Creatine Kinase 859 H 658 H CK-MB (CK-2) 3.2 H Troponin I 0.051 H* LDL Cholesterol, Calc HDL Cholesterol 04/20/18 04/20/18 04/20/18 06:18 06:18 06:18 WBC 15.0 H RBC 3.70 L Hgb 10.8 L Hct 33.6 L Plt Count 544 H Neutrophils # 12.4 H APTT 65.1 H Glucose 159 H Total Creatine Kinase CK-MB (CK-2) Troponin I LDL Cholesterol, Calc 105 H HDL Cholesterol 31 L Assessment and Plan Plan: Assessment: #1. Dyspnea multifactorial, related to acute exacerbation of COPD, and left lingular pneumonia, community-acquired. Influenza screen was negative. e lingula. #2. Elevated d-dimer, CT angios chest showed right segmental and subsegmental pulmonary emboli to the right upper lobe, right middle lobe and right lower lobe with no evidence of right heart strain, however this was a suboptimal study. Lower extremity Dopplers were negative for DVTs. 2-D echo showed EF between 55 and 60%, trace MR, mild TR, [id number] pulmonary hypertension, and mildly dilated inferior vena cava #3. Chronic and ongoing nicotine dependence, carries [id number] smoking history #4. COPD, not oxygen or prednisone dependent at her baseline #5. History of non-IV heroin use #6. Leukocytosis #7. Mild troponin leak, cardiology following #8. History of pneumonias, last one in December 2017 #9. Osteoarthritis #10. GERD/Reflux Plan: Continue current antibiotic coverage, and IV Solu-Medrol 40 mg every 8 hours, sputum for culture. Film with CTA chest was sent to the radiology department be loaded into [employer] for review, and reviewed by Dr. Johnston. It was a suboptimal study, but could not exclude pulmonary emboli in the right and left lung, subsegmental. Lower extremity ultrasounds were negative for DVT. At any rate patient will be treated with 3 months of anticoagulation, patient is not covered for Xarelto or Eliquis, will start on Coumadin 7.5 mg tonight. Continue heparin infusion. Today's labs have been reviewed. There is worsening leukocytosis, no fever, patient is maintaining good oxygenation on room air, not tachycardic. Receiving IV hydration. Nicotine cessation counseling was done. Influenza screen was negative at [facility]. Patient has been evaluated by cardiology. I performed a history & physical examination of the patient and discussed their management with my nurse practitioner, Radha Cox. I reviewed the nurse practitioner's note and agree with the documented findings and plan of care. Lung sounds are positive for diffuse wheezes The findings and the impression was discussed with the patient. I attest to the documentation by the nurse practitioner. Time with Patient: Greater than 30
[2018-04-20] MEDS ORDERED: WARFARIN 7.5 MG TAB PO SCH (18:00)
[2018-04-20] MEDS: methylPREDNISolone SOD SUCCI 40 MG/ML 1 ML VIAL IV SCH (18:16)
[2018-04-20] MEDS: traZODone HCL 100 MG TAB PO SCH (21:14)
[2018-04-20] MEDS: QUEtiapine 200 MG TAB PO SCH (21:14)
[2018-04-20] MEDS: ARIPiprazole 10 MG TAB PO SCH (21:14)
[2018-04-20] MEDS: SYMBICORT 160-4.5 MCG INHALER INHALATION SCH (21:29)
[2018-04-21] MEDS: methylPREDNISolone SOD SUCCI 40 MG/ML 1 ML VIAL IV SCH ×4 (00:20→23:07)
--- NOTE | 2018-04-21 01:05 | P.PN ---
Subjective Progress Note Date: 04/20/18 Principal diagnosis: Acute pulmonary embolism Pneumonia COPD Patient is a 52-year-old female with known history of COPD, nicotine addiction, GERD and osteoarthritis and history of multiple pneumonias patient is to ER as a transfer from [facility] in the hospital. Patient presented to ER with complaints of shortness of breath for the past 10 days. Patient was also having cough and chest pain with deep breathing. Chest pain is mainly bilateral lower rib cage sharp pain worsens with cough. Patient has been having exertional short of breath with walking and due to that she states that she had a someone for dog walking as well. Patient does have a history of COPD and did use now blazing treatments at home without much relief. Patient was found to have elevated d- dimer and underwent CT angiogram of the chest which showed pulmonary embolism. Patient also found have elevated troponin level 0.13. Pulse ox 93% on admission. There was also counseled for half left lower lobe pneumonia. Patient was started on Rocephin and Levaquin. Patient otherwise denied any previous history of blood clots. Patient does have leg swelling right greater than left about a week ago. Patient says that she was treated with for pneumonia in December 2017 and had history of pneumonia 4 during last year as per patient. Patient is currently everyday smoker. Does have history of hairline IVDU. D-dimer 3.74 Influenza A and B- Lactic acid 2.1 Hemoglobin 13.0 WBC 12.9 UDS is positive for tricyclic antidepressants EKG showed normal sinus rhythm. Carotid duplex showed no evidence of DVT in the bilateral lower extremities. 04/20/2018 Patient says that her breathing is better today. Currently on heparin drip and antibiotics in the form of ceftriaxone and azithromycin. Patient is being assessed for oral anticoagulation which he requires prior authorization. Pulmonary and cardiology is following. Otherwise patient is symptomatically improving. No fever no chills. No nausea vomiting or abdominal pain. No other acute overnight issues. Chest x-ray showed improved aeration. Current medications reviewed. Active Medications Generic Name Dose Route Start Last Admin Trade Name Freq PRN Reason Stop Dose Admin Acetaminophen 650 mg 04/19/18 20:57 Tylenol Tab PO Q6HR PRN Fever and/ or Mild Pain Albuterol/Ipratropium 3 ml 04/19/18 16:00 04/20/18 21:29 Duoneb 0.5 Mg-3 Mg/3 Ml Soln INHALATION 3 ml RT-QID JAK Administration Albuterol/Ipratropium 3 ml 04/20/18 16:00 04/20/18 21:29 Duoneb 0.5 Mg-3 Mg/3 Ml Soln INHALATION Not Given RT-QID JAK Albuterol/Ipratropium 3 ml 04/20/18 13:18 Duoneb 0.5 Mg-3 Mg/3 Ml Soln INHALATION RT-Q2H PRN Shortness Of Breath Or Wheezing Aripiprazole 30 mg 04/19/18 21:15 04/20/18 21:14 Abilify PO 30 mg HS JAK Administration Azithromycin 500 mg 04/20/18 12:00 04/20/18 11:32 Zithromax PO 500 mg Q24H JAK Administration Budesonide/Formoterol Fumarate 2 puff 04/20/18 20:00 04/20/18 21:29 Symbicort 160-4.5 Mcg Inhaler INHALATION 2 puff RT-BID JAK Administration Calcium Carbonate/Glycine 1,000 mg 04/19/18 20:01 04/20/18 21:20 Tums PO 1,000 mg TID PRN Administration Heartburn Gabapentin 1,200 mg 04/19/18 21:15 04/20/18 21:14 Neurontin PO 1,200 mg BID JAK Administration Heparin Sodium (Porcine) 0 unit 04/19/18 12:30 04/19/18 13:37 Heparin IV 5,000 unit PER PROTOCOL PRN Administration Low PTT Protocol Heparin Sodium/Sodium Chloride 250 mls @ 18.33 mls/hr 04/19/18 12:30 19:00 25,000 unit/ Sodium Chloride IV 18 units/kg/hr .[id number] JAK 18.33 mls/hr Administration Protocol 18 UNITS/KG/HR Ceftriaxone Sodium 1 gm/ 50 mls @ 100 mls/hr 04/19/18 13:00 04/20/18 14:41 Sodium Chloride IVPB 04/23/18 13:01 100 mls/hr Q24H JAK Administration Sodium Chloride 1,000 mls @ 100 mls/hr 04/19/18 12:30 04/20/18 21:15 Saline 0.9% IV 100 mls/hr .Q10H JAK Administration Methylprednisolone Sodium Succinate 40 mg 04/20/18 16:00 04/21/18 00:20 Solu-Medrol IV 40 mg Q8HR JAK Administration Miscellaneous Information 1 each 04/19/18 12:30 Pneumonia Protocol Utilized PO ONCE PRN Per Protocol Nicotine 1 patch 04/19/18 21:15 04/20/18 12:46 Habitrol 14mg/24hr Patch TRANSDERM Not Given DAILY [facility] Nitroglycerin 0.4 mg 04/19/18 12:33 Nitrostat SUBLINGUAL Q5M PRN Chest Pain Quetiapine Fumarate 200 mg 04/19/18 21:15 04/20/18 21:14 Seroquel PO 200 mg HS JAK Administration Trazodone HCl 300 mg 04/19/18 21:00 04/20/18 21:14 Desyrel PO 300 mg HS JAK Administration Warfarin Sodium 7.5 mg 04/20/18 18:00 04/20/18 18:15 Coumadin PO 7.5 mg DAILY@1800 JAK Administration Objective - Vital Signs Vital signs: Vital Signs Temp 98.4 F 04/20/18 20:00 Pulse 76 04/20/18 21:42 Resp 20 04/20/18 20:00 BP 143/79 04/20/18 20:00 Pulse Ox 97 04/20/18 20:00 Intake & Output 04/20/18 04/20/18 04/21/18 06:59 18:59 06:59 Intake Total 487 250 Output Total 700 Balance -213 250 Weight 111.1 kg 111.1 kg Intake: Intake, IV Titration 250 250 Amount Heparin Sod,Pork in 0.45% 250 250 NaCl 25,000 unit In 0.45 % NaCl 1 250ml.bag @ 18 UNITS/KG/HR 18.33 mls/hr IV .[id number] JAK Rx#: [id number] Oral 237 Output: Urine 700 Other: Voiding Method Bedpan # Voids 1 - Exam PHYSICAL EXAMINATION: Patient is lying in the bed comfortably, no acute distress, awake alert and oriented.. HEENT: Normocephalic. Neck is supple. Pupils reactive. Nostrils clear. Oral cavity is moist. Ears reveal no drainage. Neck reveals no JVD, carotid bruits, or thyromegaly. CHEST EXAMINATION: Trachea is central. Symmetrical expansion. Bibasilar diminished air entry and minimal right basilar crackles. CARDIAC: Normal S1, S2 with no gallops. No murmurs ABDOMEN: Soft. Bowel sounds normal. No organomegaly. No abdominal bruits. Extremities: reveal no edema. No clubbing or cyanosis Neurologically awake, alert, oriented x3 with well-coordinated movements. No focal deficits noted Skin: No rash or skin lesions. Psychiatric: Coperative. Nonsuicidal Musculoskeletal: No joint swelling or deformity. Normal range of motion. - Labs CBC & Chem 7: 04/20/18 06:18 04/20/18 06:18 Labs: Abnormal Lab Results - Last 24 Hours (Table) 04/19/18 04/20/18 04/20/18 Range/Units 22:37 06:18 06:18 WBC 15.0 H (3.8-10.6) k/uL RBC 3.70 L (3.80-5.40) m/uL Hgb 10.8 L (11.4-16.0) gm/dL Hct 33.6 L (34.0-46.0) % Plt Count 544 H (150-450) k/uL Neutrophils # 12.4 H (1.3-7.7) k/uL APTT (22.0-30.0) sec Glucose 159 H (74-99) mg/dL Total Creatine Kinase 658 H (30-135) U/L LDL Cholesterol, Calc 105 H (0-99) mg/dL HDL Cholesterol 31 L (40-60) mg/dL 04/20/18 Range/Units 06:18 WBC (3.8-10.6) k/uL RBC (3.80-5.40) m/uL Hgb (11.4-16.0) gm/dL Hct (34.0-46.0) % Plt Count (150-450) k/uL Neutrophils # (1.3-7.7) k/uL APTT 65.1 H (22.0-30.0) sec Glucose (74-99) mg/dL Total Creatine Kinase (30-135) U/L LDL Cholesterol, Calc (0-99) mg/dL HDL Cholesterol (40-60) mg/dL Microbiology - Last 24 Hours (Table) 04/19/18 16:30 Blood Culture - Preliminary Blood No Growth after 24 hours Assessment and Plan Assessment: Shortness of breath and pleuritic chest pain with elevated d-dimer secondary to acute pulmonary embolism Left lower lobe pneumonia Elevated troponins secondary to pulmonary embolism and also possibly from pneumonia. Normalized now. COPD Hyperlipidemia with LDL 105 Nicotine addiction Osteoarthritis History of rheumatoid arthritis History of migraine headaches History of alcohol abuse and Heroin IVDU GERD Plan: Patient will be continued on heparin drip. Current with antibiotics in the form of ceftriaxone and azithromycin. Continue with the breathing treatments and follow closely. Pulmonary and cardiology was consulted. Further recommendations based on the clinical course. Smoking cessation has been counseled extensively. Time with Patient: Greater than 30
[2018-04-21] MEDS: SODIUM CHLORIDE 0.9% 1,000 ML IV SCH ×3 (04:30→23:07)
[2018-04-21] MEDS: HEPARIN SOD,PORK IN 0.45% NACL 25,000 UNIT in 0.45% NACL 1 250ML.BAG IV SCH ×3 (06:01→23:00)
[2018-04-21 06:57] LABS: Basophils % (A) 0 %; Eosinophils % (A) 0 %; HCT 37.9 % (34.0-46.0); HGB 11.9 gm/dL (11.4-16.0); Hypochromasia Slight; Lymphocytes # (A) 0.9 k/uL (1.0-4.8); Lymphocytes % (A) 8 %; MCH 29.1 pg (25.0-35.0); MCHC 31.5 g/dL (31.0-37.0); MCV 92.3 fL (80.0-100.0); Mean Platelet Volume 6.3; Monocytes # (A) 0.2 k/uL (0-1.0); Monocytes % (A) 1 %; Neutrophils # (A) 9.9 k/uL (1.3-7.7); Neutrophils % (A) 90 %; Platelet Count 552 k/uL (150-450); RDW 13.9 % (11.5-15.5); WBC 11.1 k/uL (3.8-10.6)
[2018-04-21 07:12] LABS: INR 0.9 (<1.2); Prothrombin Time 9.9 sec (9.0-12.0)
[2018-04-21] MEDS: NICOTINE 14MG/24HR PATCH TRANSDERM SCH (07:49)
[2018-04-21] MEDS: GABAPENTIN 400 MG CAP PO SCH ×2 (07:49→21:12)
[2018-04-21] MEDS: IPRATROPIUM-ALBUTEROL 3 ML NEB INHALATION SCH ×7 (07:58→20:52)
[2018-04-21] MEDS: SYMBICORT 160-4.5 MCG INHALER INHALATION SCH ×2 (07:58→20:51)
[2018-04-21 11:24] LABS: Glucose,Whole Blood 137 mg/dL (75-99)
[2018-04-21] MEDS: AZITHROMYCIN 500 MG TAB PO SCH (12:09)
[2018-04-21] MEDS: CALCIUM CARBONATE 500 MG CHEWABLE PO PRN (15:20)
--- NOTE | 2018-04-21 15:31 | P.PN ---
Subjective Progress Note Date: 04/21/18 Principal diagnosis: Dyspnea related to acute exacerbation of COPD, left lingular pneumonia. Right segmental and subsegmental pulmonary emboli This is a 52-year-old overweight female patient of Dr. De La Cruz, past medical history of COPD, current smoker, bipolar disorder, who was transferred from [facility] on 04/19/2018 for evaluation of worsening shortness of breath, cough, chest congestion, upper and lower lateral left-sided chest wall discomfort, fever and chills. Patient had been sick for nearly 10 days before coming into the emergency department, was mostly on bedrest. Denied any hemoptysis. She did have a sick exposure, her mother is with cold symptoms. She does have a previous episode of pneumonia in December 2017. Does have extensive smoking history currently down to half a pack a day, but prior to that smoked a pack a day for 38 years. According to the chart she has history of non-IV heroin use, last use was in January 2018. Lab work from [facility] showed white blood cell count of 12.9, hemoglobin of 13.0, platelets of 498, neutrophil count of 10.5, troponin elevation of 0.13, influenza screen was negative, d-dimer was elevated at 3.74, CPK was elevated at 886, serum sodium was 137, potassium is 3.8, chloride is 98, CO2 is 27, BUN was 18, creatinine 0.8, AST was 53, ALT was 31, alkaline phosphatase was 68, total bili was 0.6, lactic acid was 2.1. EKG showed sinus tachycardia with no ST segment depression or elevation, with a rate of 120 BPM. Pulse ox is 94% on room air, CT angiogram of the chest was obtained and it showed a right segmental and subsegmental pulmonary embolism with no evidence of right heart strain as read by the radiologist from [facility]. Was a suboptimal study, as there was not enough dye seen in the pulmonary vasculature. There was also evidence of left upper lung and left lingular pneumonia. Patient was started on Zithromax, Rocephin, nebulized bronchodilators, IV heparin, and this consult was initiated. On 04/21/2018 patient seen in follow-up on selective care unit, she is resting comfortably in bed, she states her breathing is improving, on physical exam lung sounds are still quite bronchospastic. No complaints of chest pain, no hemoptysis, room air pulse ox is 98%, no fever or chills. Yesterday we started the patient on Coumadin INR today 0.9. Remains on heparin infusion. Blood culture showed no growth. She is on empiric antibiotic coverage in the form of Rocephin and Zithromax. Objective - Vital Signs Vital signs: Vital Signs Temp 97.1 F L 04/21/18 12:00 Pulse 62 04/21/18 12:00 Resp 18 04/21/18 12:00 BP 118/61 04/21/18 12:00 Pulse Ox 98 04/21/18 12:00 Intake & Output 04/20/18 04/21/18 04/21/18 18:59 06:59 18:59 Intake Total 250 951.936 480 Balance 250 951.936 480 Weight 111.1 kg 95.254 kg Intake: Intake, IV Titration 250 701.936 Amount Heparin Sod,Pork in 0.45% 250 201.936 NaCl 25,000 unit In 0.45 % NaCl 1 250ml.bag @ 18 UNITS/KG/HR 18.33 mls/hr IV .[id number] JAK Rx#: [id number] Sodium Chloride 0.9% 1, 500 000 ml @ 100 mls/hr IV . Q10H JAK Rx#:[id number] Oral 250 480 Other: Voiding Method Bedpan Toilet Toilet # Voids 3 3 - Exam GENERAL EXAM: Alert, active, comfortable in no apparent distress. HEAD: Normocephalic/atraumatic. EYES: Normal reaction of pupils, equal size. Conjunctiva pink, sclera white. NOSE: Clear with pink turbinates. THROAT: No erythema or exudates. NECK: No masses, no JVD, no thyroid enlargement, no adenopathy. CHEST: No chest wall deformity. Symmetrical expansion. LUNGS: Equal air entry with diffuse wheezes, and rhonchi CVS: Regular rate and rhythm, normal S1 and S2, no gallops, no murmurs, no rubs ABDOMEN: Soft, nontender. No hepatosplenomegaly, normal bowel sounds, no guarding or rigidity. EXTREMITIES: No clubbing, no edema, no cyanosis, 2+ pulses and upper and lower extremities. MUSCULOSKELETAL: Muscle strength and tone normal. SPINE: No scoliosis or deformity SKIN: No rashes CENTRAL NERVOUS SYSTEM: Alert and oriented -3. No focal deficits, tone is normal in all 4 extremities. PSYCHIATRIC: Alert and oriented -3. Appropriate affect. Intact judgment and insight. - Labs CBC & Chem 7: 04/21/18 06:01 04/20/18 06:18 Labs: Abnormal Lab Results - Last 24 Hours (Table) 04/21/18 04/21/18 04/21/18 Range/Units 06:01 06:01 11:23 WBC 11.1 H (3.8-10.6) k/uL Plt Count 552 H (150-450) k/uL Neutrophils # 9.9 H (1.3-7.7) k/uL Lymphocytes # 0.9 L (1.0-4.8) k/uL APTT 50.4 H (22.0-30.0) sec POC Glucose (mg/dL) 137 H (75-99) mg/dL Microbiology - Last 24 Hours (Table) 04/19/18 16:30 Blood Culture - Preliminary Blood No Growth after 24 hours Assessment and Plan Plan: Assessment: #1. Dyspnea multifactorial, related to acute exacerbation of COPD, and left lingular pneumonia, community-acquired. Influenza screen was negative. e lingula. #2. Elevated d-dimer, CT angios chest showed right segmental and subsegmental pulmonary emboli to the right upper lobe, right middle lobe and right lower lobe with no evidence of right heart strain, however this was a suboptimal study. Lower extremity Dopplers were negative for DVTs. 2-D echo showed EF between 55 and 60%, trace MR, mild TR, [id number] pulmonary hypertension, and mildly dilated inferior vena cava #3. Chronic and ongoing nicotine dependence, carries [id number] smoking history #4. COPD, not oxygen or prednisone dependent at her baseline #5. History of non-IV heroin use #6. Leukocytosis, improving #7. Mild troponin leak, cardiology following #8. History of pneumonias, last one in December 2017 #9. Osteoarthritis #10. GERD/Reflux Plan: Continue heparin infusion, INR today 0.9, we'll give the patient 10 mg of Coumadin tonight. Continue with IV steroids, nebulized bronchodilators and antibiotics. Still quite bronchospastic on today's exam, but seems to be improving. I performed a history & physical examination of the patient and discussed their management with my nurse practitioner, Radha Cox. I reviewed the nurse practitioner's note and agree with the documented findings and plan of care. Lung sounds are positive for diffuse wheezes The findings and the impression was discussed with the patient. I attest to the documentation by the nurse practitioner. Time with Patient: Less than 30
--- NOTE | 2018-04-21 16:00 | PN ---
PROGRESS NOTE Mrs. Salazar is a 52-year-old female known history of chronic tobacco use, who presented with symptoms of dyspnea and evidence of pneumonia. She underwent a CT angiogram of the chest at [facility] and was reported showing a pulmonary embolism. She is feeling better today. Her breathing is better. She denies any symptoms of chest pain. She denies any dizziness or palpitations. She continues to cough, although better overall. She continues to be on IV heparin. We will start on Coumadin. Otherwise, she is on Abilify, Ceftriaxone, Neurontin, Methylprednisolone and trazodone. PHYSICAL EXAMINATION: Blood pressure 118/60 with a heart rate in the 60s, lungs with mild decrease in breath sounds but with improvement compared to yesterday with no significant wheezes. Heart regular rate and rhythm S1, S2. No S3. No rub. ABDOMEN: Soft, nontender. EXTREMITIES: No edema. LAB DATA: Hemoglobin of 11.9, white blood cell of 11.1. IMPRESSION: 1. Pneumonia, community-acquired. 2. Possible pulmonary embolism, anticoagulation initiated. 3. Chronic tobacco use. 4. Chronic obstructive lung disease. 5. Prior history of heroin use. 6. Prior history of alcohol intake. 7. Mild troponin elevation, not related to a type 2 myocardial infarction. RECOMMENDATIONS: From the cardiac standpoint, we will continue the present medical therapy. Anticoagulation has been initiated by Dr. Ackerman. We will see on as needed basis. Please feel free to call us for any questions. MMODL / IJN: [id number] /
[2018-04-21 17:13] LABS: Glucose,Whole Blood 165 mg/dL (75-99)
[2018-04-21] MEDS ORDERED: WARFARIN 10 MG TAB PO ONE (18:00)
[2018-04-21 20:21] LABS: Glucose,Whole Blood 206 mg/dL (75-99)
[2018-04-21] MEDS: ARIPiprazole 10 MG TAB PO SCH (21:12)
[2018-04-21] MEDS: traZODone HCL 100 MG TAB PO SCH (21:12)
[2018-04-21] MEDS: QUEtiapine 200 MG TAB PO SCH (21:12)
[2018-04-21] MEDS: INSULIN ASPART (NovoLOG) 100 UNIT/ML VIAL SQ SCH (21:15)
--- NOTE | 2018-04-21 23:11 | P.PN ---
Subjective Progress Note Date: 04/21/18 Principal diagnosis: Acute pulmonary embolism Pneumonia COPD Patient is a 52-year-old female with known history of COPD, nicotine addiction, GERD and osteoarthritis and history of multiple pneumonias patient is to ER as a transfer from [facility] in the hospital. Patient presented to ER with complaints of shortness of breath for the past 10 days. Patient was also having cough and chest pain with deep breathing. Chest pain is mainly bilateral lower rib cage sharp pain worsens with cough. Patient has been having exertional short of breath with walking and due to that she states that she had a someone for dog walking as well. Patient does have a history of COPD and did use now blazing treatments at home without much relief. Patient was found to have elevated d- dimer and underwent CT angiogram of the chest which showed pulmonary embolism. Patient also found have elevated troponin level 0.13. Pulse ox 93% on admission. There was also counseled for half left lower lobe pneumonia. Patient was started on Rocephin and Levaquin. Patient otherwise denied any previous history of blood clots. Patient does have leg swelling right greater than left about a week ago. Patient says that she was treated with for pneumonia in December 2017 and had history of pneumonia 4 during last year as per patient. Patient is currently everyday smoker. Does have history of hairline IVDU. D-dimer 3.74 Influenza A and B- Lactic acid 2.1 Hemoglobin 13.0 WBC 12.9 UDS is positive for tricyclic antidepressants EKG showed normal sinus rhythm. Carotid duplex showed no evidence of DVT in the bilateral lower extremities. 04/20/2018 Patient says that her breathing is better today. Currently on heparin drip and antibiotics in the form of ceftriaxone and azithromycin. Patient is being assessed for oral anticoagulation which he requires prior authorization. Pulmonary and cardiology is following. Otherwise patient is symptomatically improving. No fever no chills. No nausea vomiting or abdominal pain. No other acute overnight issues. Chest x-ray showed improved aeration. 04/21/2018 Patient's breathing status is improving slowly. Continued on antibiotics in the form of ceftriaxone and azithromycin. Patient was started on Coumadin. Continued on heparin drip at this time. Continued on breathing treatments and Solu-Medrol IV 40 mg every 8 hourly. Pulmonary is following. Patient will need Lovenox bridging at discharge. Current medications reviewed. Active Medications Generic Name Dose Route Start Last Admin Trade Name Freq PRN Reason Stop Dose Admin Acetaminophen 650 mg 04/19/18 20:57 Tylenol Tab PO Q6HR PRN Fever and/ or Mild Pain Albuterol/Ipratropium 3 ml 04/19/18 16:00 04/20/18 21:29 Duoneb 0.5 Mg-3 Mg/3 Ml Soln INHALATION 3 ml RT-QID JAK Administration Albuterol/Ipratropium 3 ml 04/20/18 16:00 04/20/18 21:29 Duoneb 0.5 Mg-3 Mg/3 Ml Soln INHALATION Not Given RT-QID JAK Albuterol/Ipratropium 3 ml 04/20/18 13:18 Duoneb 0.5 Mg-3 Mg/3 Ml Soln INHALATION RT-Q2H PRN Shortness Of Breath Or Wheezing Aripiprazole 30 mg 04/19/18 21:15 04/20/18 21:14 Abilify PO 30 mg HS JAK Administration Azithromycin 500 mg 04/20/18 12:00 04/20/18 11:32 Zithromax PO 500 mg Q24H JKA Administration Budesonide/Formoterol Fumarate 2 puff 04/20/18 20:00 04/20/18 21:29 Symbicort 160-4.5 Mcg Inhaler INHALATION 2 puff RT-BID JAK Administration Calcium Carbonate/Glycine 1,000 mg 04/19/18 20:01 04/20/18 21:20 Tums PO 1,000 mg TID PRN Administration Heartburn Gabapentin 1,200 mg 04/19/18 21:15 04/20/18 21:14 Neurontin PO 1,200 mg BID JAK Administration Heparin Sodium (Porcine) 0 unit 04/19/18 12:30 04/19/18 13:37 Heparin IV 5,000 unit PER PROTOCOL PRN Administration Low PTT Protocol Heparin Sodium/Sodium Chloride 250 mls @ 18.33 mls/hr 04/19/18 12:30 19:00 25,000 unit/ Sodium Chloride IV 18 units/kg/hr .[id number] JAK 18.33 mls/hr Administration Protocol 18 UNITS/KG/HR Ceftriaxone Sodium 1 gm/ 50 mls @ 100 mls/hr 04/19/18 13:00 04/20/18 14:41 Sodium Chloride IVPB 04/23/18 13:01 100 mls/hr Q24H JAK Administration Sodium Chloride 1,000 mls @ 100 mls/hr 04/19/18 12:30 04/20/18 21:15 Saline 0.9% IV 100 mls/hr .Q10H JAK Administration Methylprednisolone Sodium Succinate 40 mg 04/20/18 16:00 04/21/18 00:20 Solu-Medrol IV 40 mg Q8HR JAK Administration Miscellaneous Information 1 each 04/19/18 12:30 Pneumonia Protocol Utilized PO ONCE PRN Per Protocol Nicotine 1 patch 04/19/18 21:15 04/20/18 12:46 Habitrol 14mg/24hr Patch TRANSDERM Not Given DAILY [facility] Nitroglycerin 0.4 mg 04/19/18 12:33 Nitrostat SUBLINGUAL Q5M PRN Chest Pain Quetiapine Fumarate 200 mg 04/19/18 21:15 04/20/18 21:14 Seroquel PO 200 mg HS JAK Administration Trazodone HCl 300 mg 04/19/18 21:00 04/20/18 21:14 Desyrel PO 300 mg HS JAK Administration Warfarin Sodium 7.5 mg 04/20/18 18:00 04/20/18 18:15 Coumadin PO 7.5 mg DAILY@1800 JAK Administration Objective - Vital Signs Vital signs: Vital Signs Temp 98.3 F 04/21/18 20:00 Pulse 67 04/21/18 21:02 Resp 20 04/21/18 20:00 BP 139/78 04/21/18 20:00 Pulse Ox 94 L 04/21/18 20:52 Intake & Output 04/21/18 04/21/18 04/22/18 06:59 18:59 06:59 Intake Total 951.936 600 Balance 951.936 600 Weight 95.254 kg Intake: Intake, IV Titration 701.936 Amount Heparin Sod,Pork in 0.45% 201.936 NaCl 25,000 unit In 0.45 % NaCl 1 250ml.bag @ 18 UNITS/KG/HR 18.33 mls/hr IV .[id number] JAK Rx#: [id number] Sodium Chloride 0.9% 1, 500 000 ml @ 100 mls/hr IV . Q10H JAK Rx#:[id number] Oral 250 600 Other: Voiding Method Toilet Toilet # Voids 3 3 - Exam PHYSICAL EXAMINATION: Patient is lying in the bed comfortably, no acute distress, awake alert and oriented.. HEENT: Normocephalic. Neck is supple. Pupils reactive. Nostrils clear. Oral cavity is moist. Ears reveal no drainage. Neck reveals no JVD, carotid bruits, or thyromegaly. CHEST EXAMINATION: Trachea is central. Symmetrical expansion. Expiratory wheezing present. Minimal scattered rhonchi.. CARDIAC: Normal S1, S2 with no gallops. No murmurs ABDOMEN: Soft. Bowel sounds normal. No organomegaly. No abdominal bruits. Extremities: reveal no edema. No clubbing or cyanosis Neurologically awake, alert, oriented x3 with well-coordinated movements. No focal deficits noted Skin: No rash or skin lesions. Psychiatric: Coperative. Nonsuicidal Musculoskeletal: No joint swelling or deformity. Normal range of motion. - Labs CBC & Chem 7: 04/21/18 06:01 04/20/18 06:18 Labs: Abnormal Lab Results - Last 24 Hours (Table) 04/21/18 04/21/18 04/21/18 Range/Units 06:01 06:01 11:23 WBC 11.1 H (3.8-10.6) k/uL Plt Count 552 H (150-450) k/uL Neutrophils # 9.9 H (1.3-7.7) k/uL Lymphocytes # 0.9 L (1.0-4.8) k/uL APTT 50.4 H (22.0-30.0) sec POC Glucose (mg/dL) 137 H (75-99) mg/dL 04/21/18 04/21/18 Range/Units 17:12 20:20 WBC (3.8-10.6) k/uL Plt Count (150-450) k/uL Neutrophils # (1.3-7.7) k/uL Lymphocytes # (1.0-4.8) k/uL APTT (22.0-30.0) sec POC Glucose (mg/dL) 165 H 206 H (75-99) mg/dL Microbiology - Last 24 Hours (Table) 04/19/18 16:30 Blood Culture - Preliminary Blood No Growth after 48 hours Assessment and Plan Assessment: Shortness of breath and pleuritic chest pain with elevated d-dimer secondary to acute pulmonary embolism Left lower lobe pneumonia Elevated troponins secondary to pulmonary embolism and also possibly from pneumonia. Normalized now. COPD with exacerbation Hyperlipidemia with LDL 105 Nicotine addiction Osteoarthritis History of rheumatoid arthritis History of migraine headaches History of alcohol abuse and Heroin IVDU GERD Plan: Patient will be continued on heparin drip. Started on Coumadin. INR subtherapeutic. Current with antibiotics in the form of ceftriaxone and azithromycin. Continue with the breathing treatments and follow closely. Pulmonary and cardiology is following. Further recommendations based on the clinical course. Smoking cessation has been counseled extensively. Time with Patient: Greater than 30
[2018-04-22 05:55] LABS: Glucose,Whole Blood 154 mg/dL (75-99)
[2018-04-22 06:21] LABS: Basophils % (A) 0 %; Eosinophils % (A) 0 %; HCT 37.1 % (34.0-46.0); HGB 11.8 gm/dL (11.4-16.0); Hypochromasia Slight; Lymphocytes # (A) 1.3 k/uL (1.0-4.8); Lymphocytes % (A) 9 %; MCH 28.7 pg (25.0-35.0); MCHC 31.8 g/dL (31.0-37.0); MCV 90.4 fL (80.0-100.0); Mean Platelet Volume 6.3; Monocytes # (A) 0.4 k/uL (0-1.0); Monocytes % (A) 3 %; Neutrophils % (A) 88 %; Platelet Count 659 k/uL (150-450); RBC 4.11 m/uL (3.80-5.40); RDW 13.8 % (11.5-15.5); WBC 14.9 k/uL (3.8-10.6)
[2018-04-22 06:28] LABS: INR 1.1 (<1.2); Partial Thromboplastin Time 89.9 sec (22.0-30.0); Prothrombin Time 11.3 sec (9.0-12.0)
[2018-04-22 06:32] LABS: Anion Gap 5 mmol/L; Blood Urea Nitrogen 17 mg/dL (7-17); Calcium 9.6 mg/dL (8.4-10.2); Carbon Dioxide 26 mmol/L (22-30); Chloride 107 mmol/L (98-107); Glucose 147 mg/dL (74-99); Potassium 4.7 mmol/L (3.5-5.1); Sodium 138 mmol/L (137-145)
[2018-04-22] MEDS: INSULIN ASPART (NovoLOG) 100 UNIT/ML VIAL SQ SCH ×4 (06:37→21:49)
[2018-04-22] MEDS: GABAPENTIN 400 MG CAP PO SCH ×2 (08:10→20:47)
[2018-04-22] MEDS: NICOTINE 14MG/24HR PATCH TRANSDERM SCH (08:10)
[2018-04-22] MEDS: methylPREDNISolone SOD SUCCI 40 MG/ML 1 ML VIAL IV SCH ×2 (08:10→16:20)
[2018-04-22] MEDS: AZITHROMYCIN 500 MG TAB PO SCH (08:10)
[2018-04-22] MEDS: SODIUM CHLORIDE 0.9% 1,000 ML IV SCH ×2 (08:11→20:47)
[2018-04-22] MEDS: SYMBICORT 160-4.5 MCG INHALER INHALATION SCH ×2 (08:56→20:06)
[2018-04-22] MEDS: IPRATROPIUM-ALBUTEROL 3 ML NEB INHALATION SCH ×5 (08:56→20:06)
[2018-04-22] MEDS: APIXABAN 5 MG TAB PO SCH ×2 (09:57→20:47)
[2018-04-22 11:11] LABS: Glucose,Whole Blood 184 mg/dL (75-99)
--- NOTE | 2018-04-22 12:25 | P.PN ---
Subjective Progress Note Date: 04/22/18 This is a 52-year-old female with known history of nicotine dependence , patient also has history of EtOH abuse in the past, states that she had a relapse in February and was drinking heavily at that time. She also states that she had overdosed on heroin in January of last year. She presented initially to [facility] with symptoms of chest discomfort, she also states that she's been having significant cough at home. A CAT scan of the chest was performed there which revealed right segmental and subsegmental PE, no evidence of right heart strain on the CAT scan. However this study was suboptimal. Chest x-ray there also showed some evidence of possible infiltrate . Laboratory data at [place] was reviewed, lactic acid came back at 2.1, sodium 137, potassium 3.8, BUN 18 and creatinine 0.8. D-dimer 3.74. Influenza A and B were negative. Troponin came back at 0.131, white blood cell count 12.9 , hemoglobin 13.0, platelet count 498. Drug screen positive for tricyclics. EKG performed at [facility] showed a normal sinus rhythm with S1 Q3 T3 pattern. Patient was transferred to [facility] for further care. Blood pressure 110/80 with heart rate in the 80s to 90s, 93% on room air. No labs have been drawn yet here at [facility]. EKG performed here shows a normal sinus rhythm with S1 Q3 T3 pattern. At the time of our examination, patient denied any chest pain at present unless she coughs she states that she does not have pain. Still mildly short of breath. 04/20/2018 Patient was seen and examined this morning, her states that her breathing is improved today overall. Echocardiogram with Doppler study was performed which revealed a normal left ventricular systolic function. Blood pressure today 118/ 56 with a heart rate in the 60s, 93% on room air. White blood cell count 15, hemoglobin 10.8, platelet count 544. Sodium 139, potassium 4.5, BUN 16 and creatinine 0.5. 04/22/2018 Patient seen and examined this morning, breathing is improving. Continues to have cough. Hemodynamically stable. We will give the patient Eliquis 10 mg, discontinue IV heparin in 2 hours. Continue Eliquis per protocol for PE. Objective - Vital Signs Vital signs: Vital Signs Temp 97.0 F L 04/22/18 08:00 Pulse 60 04/22/18 09:08 Resp 20 04/22/18 08:00 BP 114/66 04/22/18 08:00 Pulse Ox 96 04/22/18 08:00 Intake & Output 04/21/18 04/22/18 04/22/18 18:59 06:59 18:59 Intake Total 600 1029.002 160 Balance 600 1029.002 160 Weight 103.4 kg Intake: Intake, IV Titration 639.002 Amount Heparin Sod,Pork in 0.45% 389.002 NaCl 25,000 unit In 0.45 % NaCl 1 250ml.bag @ 18 UNITS/KG/HR 18.33 mls/hr IV .[id number] JAK Rx#: [id number] Sodium Chloride 0.9% 1, 250 000 ml @ 100 mls/hr IV . Q10H JAK Rx#:[id number] Oral 600 390 160 Other: Voiding Method Toilet Toilet Toilet # Voids 3 1 - Exam PHYSICAL EXAMINATION: GENERAL: 82-year-old female in no acute distress at the time of my examination HEENT: Head is atraumatic, normocephalic. Pupils equal, round. Sclera anicteric. Conjunctiva are clear. Mucous membranes of the mouth are moist. Neck is supple. There is no elevated jugular venous pressure. No carotid bruit is heard. HEART EXAMINATION: Heart S1, S2 normal. No murmur or gallop heard. CHEST EXAMINATION: Lungs reveal decreased air exchange throughout with scattered coarse rhonchi and wheezing noted. ABDOMEN: Soft, nontender. Bowel sounds are heard. No organomegaly noted. EXTREMITIES:[ 2+ peripheral pulses with no evidence of peripheral edema and positive Homans sign on the right. NEUROLOGIC patient is awake, alert and oriented 3 . - Labs CBC & Chem 7: 04/22/18 05:52 04/22/18 05:52 Labs: Abnormal Lab Results - Last 24 Hours (Table) 04/21/18 04/21/18 04/22/18 Range/Units 17:12 20:20 05:52 WBC 14.9 H (3.8-10.6) k/uL Plt Count 659 H (150-450) k/uL Neutrophils # 13.0 H (1.3-7.7) k/uL APTT (22.0-30.0) sec Glucose (74-99) mg/dL POC Glucose (mg/dL) 165 H 206 H (75-99) mg/dL 04/22/18 04/22/18 04/22/18 Range/Units 05:52 05:54 05:55 WBC (3.8-10.6) k/uL Plt Count (150-450) k/uL Neutrophils # (1.3-7.7) k/uL APTT 89.9 H (22.0-30.0) sec Glucose 147 H (74-99) mg/dL POC Glucose (mg/dL) 154 H (75-99) mg/dL 04/22/18 Range/Units 11:10 WBC (3.8-10.6) k/uL Plt Count (150-450) k/uL Neutrophils # (1.3-7.7) k/uL APTT (22.0-30.0) sec Glucose (74-99) mg/dL POC Glucose (mg/dL) 184 H (75-99) mg/dL Microbiology - Last 24 Hours (Table) 04/19/18 16:30 Blood Culture - Preliminary Blood No Growth after 48 hours Assessment and Plan Plan: Assessment and plan #1 symptoms of chest discomfort with associated shortness of breath. Elevated d -dimer, CT of the chest positive for pulmonary embolism. #2 abnormal troponin, could be secondary to pulmonary embolism, could also be elevated secondary to a possible pneumonia. #3 nicotine dependence #4 history of EtOH abuse #5 history of heroin abuse Plan We will give the patient Eliquis 10 mg and now, discontinue the IV heparin in 2 hours. Continue Eliquis per PE protocol. Follow-up as an outpatient. DNP note has been reviewed, I agree with a documented findings and plan of care. Patient was seen and examined.
--- NOTE | 2018-04-22 13:03 | P.PN ---
Subjective Progress Note Date: 04/22/18 Principal diagnosis: Acute exacerbation of chronic obstructive pulmonary disease complicated by left lingular pneumonia and right segmental/subsegmental pulmonary emboli This is a 52-year-old overweight female patient of Dr. De La Cruz, past medical history of COPD, current smoker, bipolar disorder, who was transferred from [facility] on 04/19/2018 for evaluation of worsening shortness of breath, cough, chest congestion, upper and lower lateral left-sided chest wall discomfort, fever and chills. Patient had been sick for nearly 10 days before coming into the emergency department, was mostly on bedrest. Denied any hemoptysis. She did have a sick exposure, her mother is with cold symptoms. She does have a previous episode of pneumonia in December 2017. Does have extensive smoking history currently down to half a pack a day, but prior to that smoked a pack a day for 38 years. According to the chart she has history of non-IV heroin use, last use was in January 2018. Lab work from [facility] showed white blood cell count of 12.9, hemoglobin of 13.0, platelets of 498, neutrophil count of 10.5, troponin elevation of 0.13, influenza screen was negative, d-dimer was elevated at 3.74, CPK was elevated at 886, serum sodium was 137, potassium is 3.8, chloride is 98, CO2 is 27, BUN was 18, creatinine 0.8, AST was 53, ALT was 31, alkaline phosphatase was 68, total bili was 0.6, lactic acid was 2.1. EKG showed sinus tachycardia with no ST segment depression or elevation, with a rate of 120 BPM. Pulse ox is 94% on room air, CT angiogram of the chest was obtained and it showed a right segmental and subsegmental pulmonary embolism with no evidence of right heart strain as read by the radiologist from [facility]. Was a suboptimal study, as there was not enough dye seen in the pulmonary vasculature. There was also evidence of left upper lung and left lingular pneumonia. Patient was started on Zithromax, Rocephin, nebulized bronchodilators, IV heparin, and this consult was initiated. On 04/21/2018 patient seen in follow-up on selective care unit, she is resting comfortably in bed, she states her breathing is improving, on physical exam lung sounds are still quite bronchospastic. No complaints of chest pain, no hemoptysis, room air pulse ox is 98%, no fever or chills. Yesterday we started the patient on Coumadin INR today 0.9. Remains on heparin infusion. Blood culture showed no growth. She is on empiric antibiotic coverage in the form of Rocephin and Zithromax. The patient is seen today 04/22/2017 in follow-up on the selective care unit. She is awake and alert in no acute distress. She states her breathing is nearly back to her baseline. Doing quite a bit better than compared to admission day. Maintaining good O2 saturations in the mid 90s on room air. She 's afebrile. Hemodynamically stable. Blood culture reveals no growth. White count 14.9. Hemoglobin 11.8. Creatinine 0.63. She has been initiated on Eliquis 10 mg by mouth twice a day. Continued on bronchodilators, Symbicort, antibiotics in the form of ceftriaxone and azithromycin. NicoDerm patch is in place. Objective - Vital Signs Vital signs: Vital Signs Temp 96.9 F L 04/22/18 12:00 Pulse 61 04/22/18 12:00 Resp 20 04/22/18 12:00 BP 132/85 04/22/18 12:00 Pulse Ox 94 L 04/22/18 12:00 Intake & Output 04/21/18 04/22/18 04/22/18 18:59 06:59 18:59 Intake Total 600 1029.002 400 Balance 600 1029.002 400 Weight 103.4 kg Intake: Intake, IV Titration 639.002 Amount Heparin Sod,Pork in 0.45% 389.002 NaCl 25,000 unit In 0.45 % NaCl 1 250ml.bag @ 18 UNITS/KG/HR 18.33 mls/hr IV .[id number] JAK Rx#: [id number] Sodium Chloride 0.9% 1, 250 000 ml @ 100 mls/hr IV . Q10H JAK Rx#:[id number] Oral 600 390 400 Other: Voiding Method Toilet Toilet Toilet # Voids 3 1 2 - Exam GENERAL EXAM: Alert, active, comfortable in no apparent distress. On room air. HEAD: Normocephalic. EYES: Normal reaction of pupils, equal size. NOSE: Clear with pink turbinates. THROAT: No erythema or exudates. NECK: No masses, no JVD. CHEST: No chest wall deformity. LUNGS: Equal air entry with end expiratory wheeze bilaterally. Diminished. CVS: S1 and S2 normal with no audible murmur, regular rhythm. ABDOMEN: No hepatosplenomegaly, normal bowel sounds, no guarding or rigidity. SPINE: No scoliosis or deformity SKIN: No rashes CENTRAL NERVOUS SYSTEM: No focal deficits, tone is normal in all 4 extremities. EXTREMITIES: There is no peripheral edema. No clubbing, no cyanosis. Peripheral pulses are intact. - Labs CBC & Chem 7: 04/22/18 05:52 04/22/18 05:52 Labs: Abnormal Lab Results - Last 24 Hours (Table) 04/21/18 04/21/18 04/22/18 Range/Units 17:12 20:20 05:52 WBC 14.9 H (3.8-10.6) k/uL Plt Count 659 H (150-450) k/uL Neutrophils # 13.0 H (1.3-7.7) k/uL APTT (22.0-30.0) sec Glucose (74-99) mg/dL POC Glucose (mg/dL) 165 H 206 H (75-99) mg/dL 04/22/18 04/22/18 04/22/18 Range/Units 05:52 05:54 05:55 WBC (3.8-10.6) k/uL Plt Count (150-450) k/uL Neutrophils # (1.3-7.7) k/uL APTT 89.9 H (22.0-30.0) sec Glucose 147 H (74-99) mg/dL POC Glucose (mg/dL) 154 H (75-99) mg/dL 04/22/18 Range/Units 11:10 WBC (3.8-10.6) k/uL Plt Count (150-450) k/uL Neutrophils # (1.3-7.7) k/uL APTT (22.0-30.0) sec Glucose (74-99) mg/dL POC Glucose (mg/dL) 184 H (75-99) mg/dL Microbiology - Last 24 Hours (Table) 04/19/18 16:30 Blood Culture - Preliminary Blood No Growth after 48 hours Assessment and Plan Assessment: Assessment: #1. Acute exacerbation of COPD, and left lingular pneumonia, community- acquired. Influenza screen was negative. #2. Elevated d-dimer, CT angios chest showed right segmental and subsegmental pulmonary emboli to the right upper lobe, right middle lobe and right lower lobe with no evidence of right heart strain, however this was a suboptimal study. Lower extremity Dopplers were negative for DVTs. 2-D echo showed EF between 55 and 60%, trace MR, mild TR, [id number] pulmonary hypertension, and mildly dilated inferior vena cava #3. Chronic and ongoing nicotine dependence, carries 24-nnef-iour smoking history #4. COPD, not oxygen or prednisone dependent at her baseline #5. History of non-IV heroin use #6. Leukocytosis, improving #7. Mild troponin leak, cardiology following #8. History of pneumonias, last one in December 2017 #9. Osteoarthritis #10. GERD/Reflux Plan: The patient was seen and evaluated by Dr. Ackerman. She is improved today. Maintaining good O2 saturations in the 90s on room air. She's been transitioned to Eliquis. She is again educated regarding the importance of complete smoking cessation. A Habitrol patch is in place. She would benefit from a follow-up in our office post discharge. We'll perform full pulmonary function testing to evaluate the severity of her COPD and make recommendations regarding further treatment plan. She'll remain on Symbicort, albuterol, prednisone burst and taper and complete a course of antibiotics. I, the cosigning physician, performed a history & physical examination of the patient. Lungs sounds with faint end expiratory wheeze. Maintaining good O2 saturations in the 90s on room air. I discussed the assessment and plan of care with my nurse practitioner, Rosalia Lima. I attest to the above note as dictated by her.
[2018-04-22 16:18] LABS: Glucose,Whole Blood 122 mg/dL (75-99)
[2018-04-22] MEDS: predniSONE 20 MG TAB PO SCH (18:50)
[2018-04-22 20:39] LABS: Glucose,Whole Blood 150 mg/dL (75-99)
[2018-04-22] MEDS: traZODone HCL 100 MG TAB PO SCH (20:47)
[2018-04-22] MEDS: CALCIUM CARBONATE 500 MG CHEWABLE PO PRN (20:48)
[2018-04-22] MEDS: QUEtiapine 200 MG TAB PO SCH (20:48)
[2018-04-22] MEDS: ARIPiprazole 10 MG TAB PO SCH (20:48)
[2018-04-23 06:02] LABS: Glucose,Whole Blood 110 mg/dL (75-99)
[2018-04-23] MEDS: INSULIN ASPART (NovoLOG) 100 UNIT/ML VIAL SQ SCH ×3 (06:24→22:06)
[2018-04-23] MEDS: SODIUM CHLORIDE 0.9% 1,000 ML IV SCH ×2 (06:25→16:21)
[2018-04-23 06:51] LABS: Basophils % (A) 0 %; Eosinophils % (A) 0 %; HCT 38.6 % (34.0-46.0); HGB 12.4 gm/dL (11.4-16.0); Hypochromasia Slight; Lymphocytes # (A) 2.5 k/uL (1.0-4.8); Lymphocytes % (A) 18 %; MCH 29.1 pg (25.0-35.0); MCV 90.7 fL (80.0-100.0); Mean Platelet Volume 6.1; Monocytes # (A) 0.6 k/uL (0-1.0); Monocytes % (A) 4 %; Neutrophils # (A) 10.7 k/uL (1.3-7.7); Neutrophils % (A) 76 %; Platelet Count 651 k/uL (150-450); RBC 4.25 m/uL (3.80-5.40); WBC 14.1 k/uL (3.8-10.6)
[2018-04-23] MEDS: SYMBICORT 160-4.5 MCG INHALER INHALATION SCH ×2 (07:28→19:56)
[2018-04-23] MEDS: IPRATROPIUM-ALBUTEROL 3 ML NEB INHALATION SCH ×4 (07:28→19:56)
[2018-04-23] MEDS: GABAPENTIN 400 MG CAP PO SCH ×2 (08:12→22:05)
[2018-04-23] MEDS: predniSONE 20 MG TAB PO SCH (08:12)
[2018-04-23] MEDS: NICOTINE 14MG/24HR PATCH TRANSDERM SCH (08:12)
[2018-04-23] MEDS: AZITHROMYCIN 500 MG TAB PO SCH (08:12)
[2018-04-23] MEDS: APIXABAN 5 MG TAB PO SCH ×2 (08:12→22:04)
[2018-04-23 10:01] VITALS: RESP 18
[2018-04-23 11:30] LABS: Glucose,Whole Blood 139 mg/dL (75-99)
--- NOTE | 2018-04-23 14:17 | P.PN ---
Subjective Progress Note Date: 04/23/18 Principal diagnosis: Acute exacerbation of COPD and subsegmental pulmonary emboli. This is a 52-year-old overweight female patient of Dr. De La Cruz, past medical history of COPD, current smoker, bipolar disorder, who was transferred from [facility] on 04/19/2018 for evaluation of worsening shortness of breath, cough, chest congestion, upper and lower lateral left-sided chest wall discomfort, fever and chills. Patient had been sick for nearly 10 days before coming into the emergency department, was mostly on bedrest. Denied any hemoptysis. She did have a sick exposure, her mother is with cold symptoms. She does have a previous episode of pneumonia in December 2017. Does have extensive smoking history currently down to half a pack a day, but prior to that smoked a pack a day for 38 years. According to the chart she has history of non-IV heroin use, last use was in January 2018. Lab work from [facility] showed white blood cell count of 12.9, hemoglobin of 13.0, platelets of 498, neutrophil count of 10.5, troponin elevation of 0.13, influenza screen was negative, d-dimer was elevated at 3.74, CPK was elevated at 886, serum sodium was 137, potassium is 3.8, chloride is 98, CO2 is 27, BUN was 18, creatinine 0.8, AST was 53, ALT was 31, alkaline phosphatase was 68, total bili was 0.6, lactic acid was 2.1. EKG showed sinus tachycardia with no ST segment depression or elevation, with a rate of 120 BPM. Pulse ox is 94% on room air, CT angiogram of the chest was obtained and it showed a right segmental and subsegmental pulmonary embolism with no evidence of right heart strain as read by the radiologist from [facility]. Was a suboptimal study, as there was not enough dye seen in the pulmonary vasculature. There was also evidence of left upper lung and left lingular pneumonia. Patient was started on Zithromax, Rocephin, nebulized bronchodilators, IV heparin, and this consult was initiated. On 04/21/2018 patient seen in follow-up on selective care unit, she is resting comfortably in bed, she states her breathing is improving, on physical exam lung sounds are still quite bronchospastic. No complaints of chest pain, no hemoptysis, room air pulse ox is 98%, no fever or chills. Yesterday we started the patient on Coumadin INR today 0.9. Remains on heparin infusion. Blood culture showed no growth. She is on empiric antibiotic coverage in the form of Rocephin and Zithromax. The patient is seen today 04/22/2018 in follow-up on the selective care unit. She is awake and alert in no acute distress. She states her breathing is nearly back to her baseline. Doing quite a bit better than compared to admission day. Maintaining good O2 saturations in the mid 90s on room air. She 's afebrile. Hemodynamically stable. Blood culture reveals no growth. White count 14.9. Hemoglobin 11.8. Creatinine 0.63. She has been initiated on Eliquis 10 mg by mouth twice a day. Continued on bronchodilators, Symbicort, antibiotics in the form of ceftriaxone and azithromycin. NicoDerm patch is in place. Patient was reevaluated today on 04/23/2018, continues to do well, relatively asymptomatic, hardly any cough no wheezing no shortness of breath. However she is still requiring insulin drip, and she is on Solu-Medrol. I believe the patient could be switched to prednisone at a low dose, continue bronchodilators , and consider discharge planning today. Objective - Vital Signs Vital signs: Vital Signs Temp 96.7 F L 04/23/18 12:00 Pulse 59 L 04/23/18 12:00 Resp 18 04/23/18 12:00 BP 117/68 04/23/18 12:00 Pulse Ox 97 04/23/18 12:00 Intake & Output 04/22/18 04/23/18 04/23/18 18:59 06:59 18:59 Intake Total 640 650 540 Balance 640 650 540 Weight 101.6 kg Intake: Oral 640 650 540 Other: Voiding Method Toilet Toilet Toilet # Voids 2 1 3 - Exam Physical Exam: Revealed a 52-year-old female in no distress. Head: Atraumatic normocephalic. HEENT:[Neck is supple.] [No neck masses.] [No thyromegaly.] [No JVD.] Chest: [Diminished breath sounds at the bases, minimal wheezing on forced expiratory maneuver only. Cardiac Exam: [Normal S1 and S2, no S3 gallop, no murmur.] Abdomen: [Soft, nontender, no megaly, no rebound, no guarding, normal bowel sounds.] Extremities: [No clubbing, no edema, no cyanosis.] Neurological Exam: [No focal neurologic deficit. Lymphatics: No lymphadenopathy. Skin: No rashes] - Labs CBC & Chem 7: 04/23/18 06:07 04/22/18 05:52 Labs: Abnormal Lab Results - Last 24 Hours (Table) 04/22/18 04/22/18 04/23/18 Range/Units 16:17 20:38 06:01 WBC (3.8-10.6) k/uL Plt Count (150-450) k/uL Neutrophils # (1.3-7.7) k/uL POC Glucose (mg/dL) 122 H 150 H 110 H (75-99) mg/dL 04/23/18 04/23/18 Range/Units 06:07 11:29 WBC 14.1 H (3.8-10.6) k/uL Plt Count 651 H (150-450) k/uL Neutrophils # 10.7 H (1.3-7.7) k/uL POC Glucose (mg/dL) 139 H (75-99) mg/dL Microbiology - Last 24 Hours (Table) 04/19/18 16:30 Blood Culture - Preliminary Blood No Growth after 72 hours Assessment and Plan Assessment: #1. Acute exacerbation of COPD, and left lingular pneumonia, community- acquired. Influenza screen was negative. #2. Elevated d-dimer, CT angios chest showed right segmental and subsegmental pulmonary emboli to the right upper lobe, right middle lobe and right lower lobe with no evidence of right heart strain, however this was a suboptimal study. Lower extremity Dopplers were negative for DVTs. 2-D echo showed EF between 55 and 60%, trace MR, mild TR, [id number] pulmonary hypertension, and mildly dilated inferior vena cava #3. Chronic and ongoing nicotine dependence, carries [id number] smoking history #4. COPD, not oxygen or prednisone dependent at her baseline #5. History of non-IV heroin use #6. Leukocytosis, improving #7. Mild troponin leak, cardiology following #8. History of pneumonias, last one in December 2017 #9. Osteoarthritis #10. GERD/without esophagitis. Recommendation: Switch Solu-Medrol to prednisone, discontinue insulin and recommend outpatient treatment for her diabetes or steroids induced hyperglycemia. Continue eliquis, continue bronchodilators including albuterol with Atrovent updrafts 4 times a day and when necessary, prednisone 30 mg tapered over 2 weeks and discontinued after 2 weeks. No need for any more antibiotics at this point. Add Symbicort to her DuoNeb updrafts 4 times a day and when necessary, and patient is to see me in my office in one week post discharge. Counseled regarding smoking cessation. Cleared from the pulmonary perspective for discharge planning today. Time with Patient: Less than 30
[2018-04-23] MEDS ORDERED: ALPRAZolam 0.5 MG TAB PO PRN (15:29)
--- NOTE | 2018-04-23 15:45 | P.PN ---
Subjective Patient is a 52-year-old female with known history of COPD, nicotine addiction, GERD and osteoarthritis and history of multiple pneumonias patient [facility] Patient presented to ER with complaints of shortness of breath for the past 10 days. Patient was also having cough and chest pain with deep breathing. Chest pain is mainly bilateral lower rib cage sharp pain worsens with cough. Patient has been having exertional short of breath with walking and due to that she states that she had a someone for dog walking as well. Patient does have a history of COPD and did use now blazing treatments at home without much relief. Patient was found to have elevated d- dimer and underwent CT angiogram of the chest which showed pulmonary embolism. Patient also found have elevated troponin level 0.13. Pulse ox 93% on admission. There was also counseled for half left lower lobe pneumonia. Patient was started on Rocephin and Levaquin. Patient otherwise denied any previous history of blood clots. Patient does have leg swelling right greater than left about a week ago. Patient says that she was treated with for pneumonia in December 2017 and had history of pneumonia 4 during last year as per patient. Patient is currently everyday smoker. Does have history of hairline IVDU. D-dimer 3.74 Influenza A and B- Lactic acid 2.1 Hemoglobin 13.0 WBC 12.9 UDS is positive for tricyclic antidepressants EKG showed normal sinus rhythm. Carotid duplex showed no evidence of DVT in the bilateral lower extremities. 04/20/2018 Patient says that her breathing is better today. Currently on heparin drip and antibiotics in the form of ceftriaxone and azithromycin. Patient is being assessed for oral anticoagulation which he requires prior authorization. Pulmonary and cardiology is following. Otherwise patient is symptomatically improving. No fever no chills. No nausea vomiting or abdominal pain. No other acute overnight issues. Chest x-ray showed improved aeration. 04/21/2018 Patient's breathing status is improving slowly. Continued on antibiotics in the form of ceftriaxone and azithromycin. Patient was started on Coumadin. Continued on heparin drip at this time. Continued on breathing treatments and Solu-Medrol IV 40 mg every 8 hourly. Pulmonary is following. Patient will need Lovenox bridging at discharge. 04/22/2018 Patient was admitted for community-acquired pneumonia with acute COPD exacerbation, her breathing is improving, she still have some coughing. CT angiogram showing pulmonary emboli and patient was started on warfarin and, later on is switched to Eliquis. Patient not sure about her coverage. Vitals are stable. She still have some leukocytosis at 14.1 today. She remains on antibiotic and prednisone 40 mg by mouth daily. Patient states that she started today and since she was a started on blood anticoagulant, then we will ask for physical therapy for evaluation prior to discharge Discharge planning and 24 hours Objective - Vital Signs Vital signs: Vital Signs Temp 96.7 F L 04/23/18 12:00 Pulse 68 04/23/18 15:18 Resp 18 04/23/18 12:00 BP 117/68 04/23/18 12:00 Pulse Ox 97 04/23/18 12:00 Intake & Output 04/22/18 04/23/18 04/23/18 18:59 06:59 18:59 Intake Total 640 650 540 Balance 640 650 540 Weight 101.6 kg Intake: Oral 640 650 540 Other: Voiding Method Toilet Toilet Toilet # Voids 2 1 3 - Exam Patient is lying in the bed comfortably, no acute distress, awake alert and oriented.. HEENT: Normocephalic. Neck is supple. Pupils reactive. Nostrils clear. Oral cavity is moist. Ears reveal no drainage. Neck reveals no JVD, carotid bruits, or thyromegaly. CHEST EXAMINATION: Trachea is central. Symmetrical expansion. Expiratory wheezing present. Minimal scattered rhonchi.. CARDIAC: Normal S1, S2 with no gallops. No murmurs ABDOMEN: Soft. Bowel sounds normal. No organomegaly. No abdominal bruits. Extremities: reveal no edema. No clubbing or cyanosis Neurologically awake, alert, oriented x3 with well-coordinated movements. No focal deficits noted Skin: No rash or skin lesions. Psychiatric: Coperative. Nonsuicidal Musculoskeletal: No joint swelling or deformity. Normal range of motion. - Labs CBC & Chem 7: 04/23/18 06:07 04/22/18 05:52 Labs: Abnormal Lab Results - Last 24 Hours (Table) 04/22/18 04/22/18 04/23/18 Range/Units 16:17 20:38 06:01 WBC (3.8-10.6) k/uL Plt Count (150-450) k/uL Neutrophils # (1.3-7.7) k/uL POC Glucose (mg/dL) 122 H 150 H 110 H (75-99) mg/dL 04/23/18 04/23/18 Range/Units 06:07 11:29 WBC 14.1 H (3.8-10.6) k/uL Plt Count 651 H (150-450) k/uL Neutrophils # 10.7 H (1.3-7.7) k/uL POC Glucose (mg/dL) 139 H (75-99) mg/dL Microbiology - Last 24 Hours (Table) 04/19/18 16:30 Blood Culture - Preliminary Blood No Growth after 72 hours Assessment and Plan Assessment: Shortness of breath and pleuritic chest pain with elevated d-dimer secondary to acute pulmonary embolism Left lower lobe pneumonia Elevated troponins secondary to pulmonary embolism and also possibly from pneumonia. Normalized now. COPD with exacerbation Hyperlipidemia with LDL 105 Nicotine addiction Osteoarthritis History of rheumatoid arthritis History of migraine headaches History of alcohol abuse and Heroin IVDU GERD Plan: Patient will be continued on heparin drip. Started on Coumadin. INR subtherapeutic. Current with antibiotics in the form of ceftriaxone and azithromycin. Continue with the breathing treatments and follow closely. Pulmonary and cardiology is following. Further recommendations based on the clinical course. Smoking cessation has been counseled extensively. Call for physical therapy evaluation
[2018-04-23 17:03] LABS: Glucose,Whole Blood 156 mg/dL (75-99)
[2018-04-23 20:49] LABS: Glucose,Whole Blood 193 mg/dL (75-99)
[2018-04-23] MEDS: CALCIUM CARBONATE 500 MG CHEWABLE PO PRN (22:04)
[2018-04-23] MEDS: traZODone HCL 100 MG TAB PO SCH (22:04)
[2018-04-23] MEDS: ARIPiprazole 10 MG TAB PO SCH (22:05)
[2018-04-23] MEDS: QUEtiapine 200 MG TAB PO SCH (22:05)
[2018-04-24 06:07] LABS: Glucose,Whole Blood 116 mg/dL (75-99)
[2018-04-24 06:35] LABS: Basophils # (A) 0.1 k/uL (0-0.2); Basophils % (A) 0 %; Eosinophils # (A) 0.1 k/uL (0-0.7); Eosinophils % (A) 1 %; HCT 42.6 % (34.0-46.0); HGB 13.1 gm/dL (11.4-16.0); Hypochromasia Slight; Lymphocytes # (A) 3.9 k/uL (1.0-4.8); Lymphocytes % (A) 30 %; MCHC 30.8 g/dL (31.0-37.0); Mean Platelet Volume 6.2; Monocytes # (A) 0.6 k/uL (0-1.0); Monocytes % (A) 4 %; Neutrophils % (A) 62 %; Platelet Count 708 k/uL (150-450); RBC 4.68 m/uL (3.80-5.40); RDW 14.2 % (11.5-15.5); WBC 12.8 k/uL (3.8-10.6)
[2018-04-24] MEDS: INSULIN ASPART (NovoLOG) 100 UNIT/ML VIAL SQ SCH ×4 (07:03→17:40)
[2018-04-24] MEDS: APIXABAN 5 MG TAB PO SCH (08:31)
[2018-04-24] MEDS: GABAPENTIN 400 MG CAP PO SCH (08:31)
[2018-04-24] MEDS: predniSONE 20 MG TAB PO SCH (08:31)
[2018-04-24] MEDS: AZITHROMYCIN 500 MG TAB PO SCH (08:31)
[2018-04-24] MEDS: NICOTINE 14MG/24HR PATCH TRANSDERM SCH (08:31)
[2018-04-24] MEDS: SYMBICORT 160-4.5 MCG INHALER INHALATION SCH (09:00)
[2018-04-24] MEDS: IPRATROPIUM-ALBUTEROL 3 ML NEB INHALATION SCH ×3 (09:00→15:16)
[2018-04-24 11:02] LABS: Glucose,Whole Blood 102 mg/dL (75-99)
[2018-04-24] MEDS: CALCIUM CARBONATE 500 MG CHEWABLE PO PRN (13:48)
--- NOTE | 2018-04-24 14:59 | P.PN ---
Subjective Progress Note Date: 04/24/18 Principal diagnosis: Dyspnea related to acute exacerbation of COPD, left lingular pneumonia. Right segmental and subsegmental pulmonary emboli This is a 52-year-old overweight female patient of Dr. De La Cruz, past medical history of COPD, current smoker, bipolar disorder, who was transferred from [facility] on 04/19/2018 for evaluation of worsening shortness of breath, cough, chest congestion, upper and lower lateral left-sided chest wall discomfort, fever and chills. Patient had been sick for nearly 10 days before coming into the emergency department, was mostly on bedrest. Denied any hemoptysis. She did have a sick exposure, her mother is with cold symptoms. She does have a previous episode of pneumonia in December 2017. Does have extensive smoking history currently down to half a pack a day, but prior to that smoked a pack a day for 38 years. According to the chart she has history of non-IV heroin use, last use was in January 2018. Lab work from [facility] showed white blood cell count of 12.9, hemoglobin of 13.0, platelets of 498, neutrophil count of 10.5, troponin elevation of 0.13, influenza screen was negative, d-dimer was elevated at 3.74, CPK was elevated at 886, serum sodium was 137, potassium is 3.8, chloride is 98, CO2 is 27, BUN was 18, creatinine 0.8, AST was 53, ALT was 31, alkaline phosphatase was 68, total bili was 0.6, lactic acid was 2.1. EKG showed sinus tachycardia with no ST segment depression or elevation, with a rate of 120 BPM. Pulse ox is 94% on room air, CT angiogram of the chest was obtained and it showed a right segmental and subsegmental pulmonary embolism with no evidence of right heart strain as read by the radiologist from [facility]. Was a suboptimal study, as there was not enough dye seen in the pulmonary vasculature. There was also evidence of left upper lung and left lingular pneumonia. Patient was started on Zithromax, Rocephin, nebulized bronchodilators, IV heparin, and this consult was initiated. On 04/21/2018 patient seen in follow-up on selective care unit, she is resting comfortably in bed, she states her breathing is improving, on physical exam lung sounds are still quite bronchospastic. No complaints of chest pain, no hemoptysis, room air pulse ox is 98%, no fever or chills. Yesterday we started the patient on Coumadin INR today 0.9. Remains on heparin infusion. Blood culture showed no growth. She is on empiric antibiotic coverage in the form of Rocephin and Zithromax. On 2018 patient is seen in follow-up on selective care unit, she is awake and alert, in no acute distress, room air pulse ox is 94%, afebrile, hemodynamically stable, he is improving, lung sounds are diminished, no rhonchi or wheezes.today's labs have been reviewed, showed white blood cell, 12.8, hemoglobin of 13.1. culture showed no growth. No fever or chills, patient has been ambulating tolerating activity well. she has been started on oral Eliquis, but it has been discontinued, apparently 3 month supply can be obtained through the educational/development assistant with coupons according to discharge planning. Pulmonary perspective patient can be discharged home today Objective - Vital Signs Vital signs: Vital Signs Temp 97.0 F L 04/24/18 12:00 Pulse 66 04/24/18 12:41 Resp 18 04/24/18 12:00 BP 92/68 04/24/18 12:00 Pulse Ox 94 L 04/24/18 12:00 Intake & Output 04/23/18 04/24/18 04/24/18 18:59 06:59 18:59 Intake Total 540 100 360 Output Total 900 Balance 540 -800 360 Weight 101.605 kg Intake: Oral 540 100 360 Output: Urine 900 Other: Voiding Method Toilet Toilet Toilet # Voids 3 0 1 - Exam GENERAL EXAM: Alert, active, comfortable in no apparent distress. HEAD: Normocephalic/atraumatic. EYES: Normal reaction of pupils, equal size. Conjunctiva pink, sclera white. NOSE: Clear with pink turbinates. THROAT: No erythema or exudates. NECK: No masses, no JVD, no thyroid enlargement, no adenopathy. CHEST: No chest wall deformity. Symmetrical expansion. LUNGS: Equal air entry with diminished breath sounds, no rhonchi, no wheezes CVS: Regular rate and rhythm, normal S1 and S2, no gallops, no murmurs, no rubs ABDOMEN: Soft, nontender. No hepatosplenomegaly, normal bowel sounds, no guarding or rigidity. EXTREMITIES: No clubbing, no edema, no cyanosis, 2+ pulses and upper and lower extremities. MUSCULOSKELETAL: Muscle strength and tone normal. SPINE: No scoliosis or deformity SKIN: No rashes CENTRAL NERVOUS SYSTEM: Alert and oriented -3. No focal deficits, tone is normal in all 4 extremities. PSYCHIATRIC: Alert and oriented -3. Appropriate affect. Intact judgment and insight. - Labs CBC & Chem 7: 04/24/18 05:44 04/22/18 05:52 Labs: Abnormal Lab Results - Last 24 Hours (Table) 04/23/18 04/23/18 04/24/18 Range/Units 17:02 20:48 05:44 WBC 12.8 H (3.8-10.6) k/uL MCHC 30.8 L (31.0-37.0) g/dL Plt Count 708 H (150-450) k/uL Neutrophils # 8.0 H (1.3-7.7) k/uL POC Glucose (mg/dL) 156 H 193 H (75-99) mg/dL 04/24/18 04/24/18 Range/Units 06:05 11:00 WBC (3.8-10.6) k/uL MCHC (31.0-37.0) g/dL Plt Count (150-450) k/uL Neutrophils # (1.3-7.7) k/uL POC Glucose (mg/dL) 116 H 102 H (75-99) mg/dL Microbiology - Last 24 Hours (Table) 04/19/18 16:30 Blood Culture - Preliminary Blood No Growth after 96 hours Assessment and Plan Plan: Assessment: #1. Dyspnea multifactorial, related to acute exacerbation of COPD, and left lingular pneumonia, community-acquired. Influenza screen was negative. e lingula. #2. Elevated d-dimer, CT angios chest showed right segmental and subsegmental pulmonary emboli to the right upper lobe, right middle lobe and right lower lobe with no evidence of right heart strain, however this was a suboptimal study. Lower extremity Dopplers were negative for DVTs. 2-D echo showed EF between 55 and 60%, trace MR, mild TR, [id number] pulmonary hypertension, and mildly dilated inferior vena cava #3. Chronic and ongoing nicotine dependence, carries [id number] smoking history #4. COPD, not oxygen or prednisone dependent at her baseline #5. History of non-IV heroin use #6. Leukocytosis, improving #7. Mild troponin leak, cardiology following #8. History of pneumonias, last one in December 2017 #9. Osteoarthritis #10. GERD/Reflux Plan: patient is stable, breathing easier, fever or chills, tolerating ambulation, she is on room air. From pulmonary perspective she stable for discharge home today on oral course of antibiotics, Eliquis three-month supply is available through the educational/development assistant with coupons according to discharge planning. Patient is doing well, no chest pain, no shortness of breath, no chest wall tenderness, clinically improving, she can be discharged home today. She'll need follow-up with Dr. Ackerman in the office in one week. I performed a history & physical examination of the patient and discussed their management with my nurse practitioner, Radha Cox. I reviewed the nurse practitioner's note and agree with the documented findings and plan of care. Lung sounds are positive for diminished breath sounds. The findings and the impression was discussed with the patient. I attest to the documentation by the nurse practitioner. Time with Patient: Less than 30
[2018-04-24 16:16] VITALS: BP 109/61; PULSE 79; TEMP 97.1
[2018-04-24 16:38] LABS: Glucose,Whole Blood 186 mg/dL (75-99)
== END 2018-04-24 18:12 | disposition home or self-care (01) | DRG 175 ==
LOC: EC 12:04 → 3SCARD 12:30
PROVIDERS: ADMIT Internal Medicine; ATTEND Internal Medicine
DX: I26.99 Other pulmonary embolism without acute cor pulmonale (principal); J18.1 Lobar pneumonia, unspecified organism; J44.1 Chronic obstructive pulmonary disease with (acute) exacerbation; J44.0 Chronic obstructive pulmonary disease with (acute) lower respiratory infection; I27.20 Pulmonary hypertension, unspecified; F31.9 Bipolar disorder, unspecified; M19.90 Unspecified osteoarthritis, unspecified site; K21.9 Gastro-esophageal reflux disease without esophagitis; R74.8 Abnormal levels of other serum enzymes; M06.9 Rheumatoid arthritis, unspecified; G89.29 Other chronic pain; G43.909 Migraine, unspecified, not intractable, without status migrainosus; F10.10 Alcohol abuse, uncomplicated; F11.10 Opioid abuse, uncomplicated; Z68.35 Body mass index [BMI] 35.0-35.9, adult; R00.0 Tachycardia, unspecified; E78.5 Hyperlipidemia, unspecified; E09.9 Drug or chemical induced diabetes mellitus without complications; E66.9 Obesity, unspecified; F17.210 Nicotine dependence, cigarettes, uncomplicated; T38.0X5A Adverse effect of glucocorticoids and synthetic analogues, initial encounter; Z23 Encounter for immunization; Z71.6 Tobacco abuse counseling; Z79.899 Other long term (current) drug therapy; Z87.01 Personal history of pneumonia (recurrent); Z87.11 Personal history of peptic ulcer disease; Z90.49 Acquired absence of other specified parts of digestive tract; Z88.6 Allergy status to analgesic agent; Z80.7 Family history of other malignant neoplasms of lymphoid, hematopoietic and related tissues; Z83.79 Family history of other diseases of the digestive system
CPT/HCPCS: 71045; 80048; 80061; 82550; 82553; 83880; 84484; 85025; 85610; 85730; 87040; 93306; 93970; 94640; 94760; 96365; 96366; 96376; 99285; 99406